=== PATIENT | female | born 1980 | race Caucasian/White ===

== ENCOUNTER 2020-06-07 09:02 | Outpatient (REF) | payer OTHER, SELFPAY ==
[2020-06-07 09:22] LABS: COVID-19 Test Negative (Negative); IDNOW Serial# 55D5AD1C
== END 2020-06-07 09:03 | disposition home or self-care (01) ==
LOC: HO.EMPCOV 09:02
PROVIDERS: PCP Internal Medicine; Visit Provider Internal Medicine
DX: Z20.828 Contact with and (suspected) exposure to other viral communicable diseases (principal)
CPT/HCPCS: 87635; C9803

== ENCOUNTER 2020-07-07 13:41 | Outpatient (REF) | payer OTHER, SELFPAY ==
[2020-07-07 13:58] LABS: COVID-19 Test Negative (Negative); IDNOW Serial# 55D5AD1C
== END 2020-07-07 13:42 | disposition home or self-care (01) ==
LOC: HO.EMPCOV 13:41
PROVIDERS: Visit Provider Internal Medicine
DX: Z20.822 Contact with and (suspected) exposure to COVID-19 (principal)
CPT/HCPCS: 36415; 87635; C9803

== ENCOUNTER 2020-07-14 13:38 | Outpatient (REF) | payer OTHER, SELFPAY ==
[2020-07-14 13:56] LABS: COVID-19 Test Negative (Negative); IDNOW Serial# 55D5AD1C
== END 2020-07-14 13:39 | disposition home or self-care (01) ==
LOC: HO.EMPCOV 13:38
PROVIDERS: Visit Provider Internal Medicine
DX: Z20.822 Contact with and (suspected) exposure to COVID-19 (principal)
CPT/HCPCS: 36415; 87635; C9803

== ENCOUNTER → 2020-08-11 08:56 | Outpatient (BNV) | payer OTHER, SELFPAY | PROVIDERS: PCP Internal Medicine; Visit Provider Internal Medicine | DX: D50.0 Iron deficiency anemia secondary to blood loss (chronic) (principal); N92.0 Excessive and frequent menstruation with regular cycle | CPT/HCPCS: 99213; 99214 ==

== ENCOUNTER 2020-08-30 12:21 | Outpatient (REF) | payer OTHER, SELFPAY ==
[2020-08-30 12:40] LABS: COVID-19 Test Negative (Negative); IDNOW Serial# 55D5AD1C
== END 2020-08-30 12:22 | disposition home or self-care (01) ==
LOC: HO.EMPCOV 12:21
PROVIDERS: Visit Provider Internal Medicine
DX: Z20.822 Contact with and (suspected) exposure to COVID-19 (principal)
CPT/HCPCS: 36415; 87635; C9803

== ENCOUNTER 2020-10-25 11:20 | Outpatient (REF) | payer OTHER, SELFPAY ==
--- NOTE | ~2020-10-25 | MM_ITS ---
EXAMINATION: MM SCREENING DIGITAL BREAST TOMOSYNTHESIS, BILATERAL CLINICAL INFORMATION: Screening. Asymptomatic. Age 40. No prior breast imaging. No known family history breast cancer. The lifetime risk of breast cancer based on the Tyrer-Cuzick Model is 16%. COMPARISON: None (current study represents initial baseline exam). TECHNIQUE: Digital breast tomosynthesis is performed in both the craniocaudal and mediolateral oblique views along with computer-aided detection (CAD). Synthesized 2D images are generated from the tomosynthesis. FINDINGS: There are scattered areas of fibroglandular density (ACR BI-RADS breast composition Category b). There are no significant masses, abnormal calcifications, or other abnormalities. The axilla and skin contours are unremarkable. MM/MM tomosynthesis screening BI IMPRESSION: No mammographic evidence of malignancy. ASSESSMENT: BI-RADS 1: Negative RECOMMENDATION: Routine annual mammography screening. This patient's information was entered into a reminder system with a target due date for their next mammogram.
== END 2020-10-25 11:21 | disposition home or self-care (01) ==
LOC: HO.MAMMO 11:20
PROVIDERS: PCP Internal Medicine; Visit Provider Internal Medicine
DX: Z12.31 Encounter for screening mammogram for malignant neoplasm of breast (principal)
CPT/HCPCS: 77063; 77067

== ENCOUNTER → 2021-02-20 09:13 | Outpatient (BNVA) | payer SELFPAY | PROVIDERS: PCP Internal Medicine | DX: Z20.822 Contact with and (suspected) exposure to COVID-19 (principal) | CPT/HCPCS: 36415; 87635 ==

== ENCOUNTER 2021-03-02 09:59 | Outpatient (REF) | payer OTHER, SELFPAY ==
[2021-03-02 11:48] LABS: Appearance Urine HAZY; Color Urine YELLOW; Glucose Urine UA NEG (NEG); Leukocyte Esterase Urine 1+ (NEG); Nitrite Urine NEG (NEG); PH 5.5 (5.0-8.0); UACC Culture Trigger YES; Urine Blood 1+ (NEG); Urine Ketones NEG (NEG); Urine Protein NEG (NEG-TRACE)
[2021-03-02 12:12] LABS: Bacteria Urine 4+ /LPF; Squamous Epithelial Cell Urine 1+ /LPF; WBC Urine 30-49 /HPF (0-4)
== END 2021-03-02 10:00 | disposition home or self-care (01) ==
LOC: HO.LAB 09:59
PROVIDERS: PCP Internal Medicine; Visit Provider Internal Medicine
DX: R30.0 Dysuria (principal)
CPT/HCPCS: 81001; 87086; 87088; 87186

== ENCOUNTER 2021-09-14 13:10 | Emergency (ER) | payer OTHER, SELFPAY ==
--- NOTE | ~2021-09-14 | XR_ITS ---
EXAMINATION: XR CHEST CLINICAL INFORMATION: Palpitations COMPARISON: None TECHNIQUE: Frontal view of the chest was obtained. FINDINGS: No significant abnormality is noted involving the heart, lungs, mediastinum, bony thorax or soft tissues. XR/XR chest 1V IMPRESSION: Unremarkable examination.
--- NOTE | 2021-09-14 13:13 | ECG_ITS ---
Test Reason : PALPITATIONS Blood Pressure : / mmHG Vent. Rate : 080 BPM Atrial Rate : 080 BPM P-R Int : 122 ms QRS Dur : 090 ms QT Int : 422 ms P-R-T Axes : 031 028 005 degrees QTc Int : 486 ms Normal sinus rhythm Normal ECG No previous ECGs available Referred By: Generic ED Physician Electronically Signed By:RAMONITA LOPES
[2021-09-14 13:41] VITALS: BP 137/84; PULSE 74; RESP 18; TEMP 37.1; O2SAT 97; BMI 33.6
== END 2021-09-14 18:26 | disposition left against medical advice (07) ==
PROVIDERS: Emergency Provider Emergency Medicine; PCP Internal Medicine
DX: R00.2 Palpitations (principal); Z87.891 Personal history of nicotine dependence; F41.9 Anxiety disorder, unspecified; F32.A Depression, unspecified; D64.9 Anemia, unspecified
CPT/HCPCS: 71045; 93005; 99282; 99283

== ENCOUNTER 2021-09-14 16:25 | Outpatient (REF) | payer OTHER, SELFPAY ==
[2021-09-14 16:59] LABS: Hematocrit 40.7 % (37.0-47.0); Hemoglobin 12.8 g/dl (12.0-16.0); Mean Corpuscular HGB Conc 31.4 g/dl (31.0-35.0); Mean Corpuscular Hemoglobin 26.3 pg (27.0-33.0); Mean Corpuscular Volume 83.7 fL (80.0-98.0); Platelet Count 398 X10*3/uL (160-400); Red Blood Count 4.86 X10*6/uL (4.20-5.50)
[2021-09-14 17:16] LABS: Iron 126 mcg/dL (30-160); Percent Iron Saturation 28 % (15-50); Total Iron Binding Capacity 452 mcg/dL (228-428); Unsaturated Iron Binding 326 ug/dL
== END 2021-09-14 16:26 | disposition home or self-care (01) ==
LOC: HO.LAB 16:25
PROVIDERS: PCP Internal Medicine; Visit Provider Internal Medicine
DX: D64.9 Anemia, unspecified (principal)
CPT/HCPCS: 36415; 83540; 85027

== ENCOUNTER 2021-10-30 12:12 | Outpatient (REF) | payer OTHER, SELFPAY ==
--- NOTE | ~2021-10-30 | MM_ITS ---
EXAMINATION: MM SCREENING DIGITAL BREAST TOMOSYNTHESIS, BILATERAL CLINICAL INFORMATION: Screening. Asymptomatic. The lifetime risk of breast cancer based on the Tyrer-Cuzick Model is 17%. COMPARISON: Mammography: 10/25/2020 (baseline). TECHNIQUE: Digital breast tomosynthesis is performed in both the craniocaudal and mediolateral oblique views along with computer-aided detection (CAD). Synthesized 2D images are generated from the tomosynthesis. FINDINGS: There are scattered areas of fibroglandular density (ACR BI-RADS breast composition Category b). There are no significant masses, abnormal calcifications, or other abnormalities. Parenchymal pattern is similar to baseline exam. The axilla and skin contours are unremarkable. MM/MM tomosynthesis screening BI IMPRESSION: No mammographic evidence of malignancy. ASSESSMENT: BI-RADS 1: Negative RECOMMENDATION: Routine annual mammography screening. This patient's information was entered into a reminder system with a target due date for their next mammogram.
== END 2021-10-30 12:13 | disposition home or self-care (01) ==
LOC: HO.MAMMO 12:12
PROVIDERS: Visit Provider Internal Medicine
DX: Z12.31 Encounter for screening mammogram for malignant neoplasm of breast (principal)
CPT/HCPCS: 77063; 77067

== ENCOUNTER 2022-11-26 09:10 | Outpatient (REF) | payer OTHER, SELFPAY ==
--- NOTE | ~2022-11-26 | MM_ITS ---
EXAMINATION: MM SCREENING DIGITAL BREAST TOMOSYNTHESIS, BILATERAL CLINICAL INFORMATION: Screening. Asymptomatic. The lifetime risk of breast cancer based on the Tyrer-Cuzick Model is 15%. COMPARISON: Mammography: 10/30/2021, 10/25/2020 (baseline). TECHNIQUE: Digital breast tomosynthesis is performed in both the craniocaudal and mediolateral oblique views along with computer-aided detection (CAD). Synthesized 2D images are generated from the tomosynthesis. FINDINGS: There are scattered areas of fibroglandular density (ACR BI-RADS breast composition Category b). There are no significant masses, abnormal calcifications, or other abnormalities. Parenchymal pattern is similar to prior studies. There is no developing density or architectural abnormality. The axilla and skin contours are unremarkable. No significant changes. MM/MM tomosynthesis screening BI IMPRESSION: No mammographic evidence of malignancy. ASSESSMENT: BI-RADS 1: Negative RECOMMENDATION: Routine annual mammography screening. This patient's information was entered into a reminder system with a target due date for their next mammogram.
== END 2022-11-26 09:11 | disposition home or self-care (01) ==
LOC: HO.MAMMO 09:10
PROVIDERS: PCP Internal Medicine; Visit Provider Internal Medicine
DX: Z12.31 Encounter for screening mammogram for malignant neoplasm of breast (principal)
CPT/HCPCS: 77063; 77067

== ENCOUNTER 2023-02-27 16:56 | Emergency (ER) | payer OTHER, SELFPAY ==
[2023-02-27 17:18] VITALS: BP 184/100; PULSE 98; RESP 20; TEMP 36.8; O2SAT 97; BMI 35.4
--- NOTE | 2023-02-27 17:18 | ED.GENADULT ---
HPI - General Adult General Chief complaint: Recheck/Abnormal Lab/Rx Stated complaint: High Blood Pressure Time Seen by Provider: 02/27/23 20:32 Source: patient Mode of arrival: ambulatory History of Present Illness HPI narrative: 42-year-old female with a family history hypertension presents with concerns regarding consistently high blood pressures without associated dizziness/headaches/visual changes, she denies any chest pain or palpitations other than in the evening when she is relaxing with her child but they do not persistent are not associated with shortness of breath. Patient reports that she has an appointment at the end of the month with her primary care provider. Related Data Home Medications Medication Instructions Recorded Confirmed bupropion HCl 150 mg tablet,12 hr 150 mg PO DAILY 05/22/20 02/25/23 sustained-release (Wellbutrin SR) fluocinolone 0.01 % topical 1 appl topical DAILY 05/22/20 02/25/23 solution fluoxetine 40 mg capsule (Prozac) 40 mg PO DAILY 05/22/20 02/25/23 betamethasone, augmented 0.05 % 1 appl topical DAILY PRN Dry Skin 09/14/21 02/25/23 topical ointment norethindrone acetate 5 mg tablet 5 mg PO DAILY 02/19/22 02/25/23 (Aygestin) Previous Rx's Medication Instructions Recorded hydrochlorothiazide 12.5 mg capsule 12.5 mg PO DAILY #14 caps 02/27/23 Allergies Allergy/AdvReac Type Severity Reaction Status Date / Time celecoxib [From CELEBREX] Allergy Severe MUSCLE Verified 02/27/23 17:29 SWELLING clavulanic acid Allergy Severe HIVES Verified 02/27/23 17:29 [From AUGMENTIN] penicillin V Allergy Severe rash Verified 02/27/23 17:29 Sulfa (Sulfonamide Allergy Mild SWELLING Verified 02/27/23 17:29 Antibiotics) codeine [Codeine] AdvReac Mild NAUSEA & Verified 02/27/23 17:29 VOMITING Review of Systems Review of Systems: Pertinent positives and negatives as stated in HPI [facility] Past Medical History Source: nursing notes reviewed Medical History Anxiety and depression Shoulder pain Referral of patient Gallbladder polyp Fatty liver Anemia History of renal calculi Toe fracture, left Depression Surgical History H/O dilation and curettage History of hysteroscopy History of bunionectomy History of section Family History Family History Father Colon cancer Maternal Grandmother Breast cancer Paternal Grandfather CAD (coronary artery disease) Social History Social History Household Members: Significant Other and Children Housing: House Alcohol intake: current Alcohol intake frequency: holidays/special occasions only Patient Tobacco Use Status: Never used Tobacco Tobacco use type: Cigarette Smoked in Last 30 Days: No Use of substances other than those prescribed or required for medical reasons: No Advance Directives: No Advance Directives Information Provided: No Patient : No service: No Current occupational status: employed Physical Exam ED Vital Signs: Vital Signs - 24 hr 02/27/23 17:18 02/27/23 20:34 02/27/23 20:51 Temperature 98.3 F Pulse Rate 98 86 Respiratory Rate 20 18 Blood Pressure 184/100 H 185/106 H 166/109 H Pulse Oximetry 97 Oxygen Delivery Method Room Air Oxygen Flow Rate 96 BMI result Body Mass Index 35.4 VITAL SIGNS: Reviewed. GENERAL: Elevated BMI, Well developed, well nourished, in no acute distress. HEAD: Normocephalic/atraumatic EYES: PERRLA, EOMI EARS: Ext canals without abnormality NOSE: Nares patent bilateral OROPHARYNX: no oral lesions noted, posterior pharynx clear NECK: Supple, no adenopathy LUNGS: Normal breath sounds. No adventitious sounds or accessory muscle use. SpO2<97> CARDIOVASCULAR: Regular rate and rhythm without noted murmurs ABDOMEN: Soft, non-tender, non-distended with bowel sounds. MUSCULOSKELETAL: No tenderness, deformities, or effusions noted on gross inspection. EXTREMITIES: No cyanosis, clubbing or edema. SKIN: Inspection of the skin reveals no rashes NEUROLOGIC: Alert and oriented x 4. Strength and sensation to light touch were grossly intact x 4. Course Course Course Narrative: This is an RME: Additional HPI, ROS, PE not included below will be deferred to primary provider. This is a [id number]-female presenting to the emergency department with complaints of elevated blood pressure. She states that two days ago she was at a medical office and was told that her blood pressure was elevated (165/110). She admits to having intermittent heart palpitations for the last several months and has had episodes where she has to take deep breaths. She had an episode of this today. She has been monitoring her blood pressure at home since this appointment and blood pressure has been in the 170s/110s. Blood pressure elevated at 184/100. Has an appt with Dr. Chan at the end of February, but given father had a hx of two heart attacks and stroke, pt wanted to be seen. BP at home this AM was 177/104. Plan: Labs, EKG Medical Decision Making Medical Decision Making [facility] [place] Narrative: 42-year-old female with history and clinical presentation consistent with asymptomatic hypertension, patient has not 1st attempted any lifestyle changes at this time, but diastolic is significantly elevated. I reviewed all investigations and hematologic studies are negative for leukocytosis or left shift, no anemia but there is a slight elevation in the platelet count that appears to have persisted since August of this year. Chemistry indices are grossly within normal limits other than an elevation of glucose but no MASTER and electrolytes/liver enzymes are without abnormalities. TSH is 1.13. Urinalysis is negative for protein/UTI/hematuria. EKG does not demonstrate ischemic changes. All results and findings discussed with patient at bedside, she received 12.5 mg of hydrochlorothiazide and will be discharged with a 2 week supply that should bridge her until she follows up with her primary care provider. My interpretation is that patient has asymptomatic essential hypertension. Differential Diagnosis Differential Diagnoses: The differential diagnosis associated with the presentation includes Please see the discussion above Admission/Observation Consideration of admission/observation: Escalation of care including admission/observation considered Please see the discussion above Lab Data [facility] [place] Lab Attestation statement: I reviewed the patient's lab results. Please see the discussion above 02/27/23 17:40 02/27/23 17:40 Labs: Lab Results 02/27/23 Range/Units 17:40 WBC 9.5 (4.8-10.8) X10*3/uL RBC 5.21 (4.20-5.50) X10*6/uL Hgb 14.7 (12.0-16.0) g/dl Hct 44.1 (37.0-47.0) % MCV 84.6 (80.0-98.0) fL MCH 28.2 (27.0-33.0) pg MCHC 33.3 (31.0-35.0) g/dl RDW 14.8 (11.0-16.0) % Plt Count 412 H (160-400) X10*3/uL MPV 10.3 (9.4-12.3) fL Immature Gran % (Auto) 1.4 H (0.0-0.4) % Neut % (Auto) 60.7 (45-73) % Lymph % (Auto) 27.3 (20-40) % [place] % (Auto) 6.7 (2-11) % Eos % (Auto) 3.3 (0-4) % Baso % (Auto) 0.6 (0-2) % Lymph # (Auto) 2.6 (1.2-4.9) X10*3/uL [place] # (Auto) 0.6 (0.1-1.2) X10*3/uL Eos # (Auto) 0.3 (0.0-0.4) X10*3/uL Baso # (Auto) 0.1 (0.0-0.2) X10*3/uL Abs Immat Gran (auto) 0.13 H (0.00-0.03) X10*3/uL Absolute Neuts (auto) 5.8 (2.0-8.3) x10*3/uL Absolute Nucleated RBC 0.000 (0.0-0.012) X10*3/uL Nucleated RBC % (auto) 0.0 (0.0-0.2) /100WBC Sodium 138 (135-145) mmol/L Potassium 4.1 (3.3-5.1) mmol/L Chloride 104 (96-108) mmol/L Carbon Dioxide 25 (22-29) mmol/L Anion Gap 13 (12-20) BUN 11 (9-16) mg/dL Creatinine 0.89 (0.5-1.4) mg/dL Estim Creat Clear Calc 87.1 Estimated GFR > 60 Random Glucose 129 H (60-115) mg/dL Calcium 10.3 H D (8.4-10.2) mg/dL Total Bilirubin 0.3 (0.0-1.0) mg/dL Direct Bilirubin 0.1 (0.0-0.5) mg/dL AST 16 (5-31) U/L ALT 16 (0-31) U/L Alkaline Phosphatase 60 (39-117) U/L Total Protein 7.9 (6.5-8.0) g/dL Albumin 4.3 (3.5-5.0) g/dL TSH 1.13 (0.32-4.0) uIU/mL Urine Color Dark Yellow Urine Appearance Clear Urine pH 5.5 (5.0-9.0) Ur Specific [place] >= 1.030 H (1.005-1.025) Urine Protein Trace (Neg-Trace) mg/dL Urine Glucose (UA) Negative (Negative) mg/dL Urine Ketones Negative (Negative) mg/dL Urine Blood Negative (Negative) Urine Nitrite Negative (Negative) Ur Leukocyte Esterase Negative (Negative) Independent Interpretation I performed an independent interpretation of an: EKG Interpretation: Normal sinus rhythm, HR-89, no STEMI, SC/QRS/QTC is within normal limits. External Record Review External record reviewed: Outpatient record and Prior outpatient radiology Chronic Conditions Patient?s care impacted by: Hypertension Discharge Plan Discharge Clinical Impression: Essential hypertension, Elevated glucose level Patient Disposition: Home, Self-Care Instructions: DASH Eating Plan (ED), Hypertension (ED) Additional Instructions: 1. Please start the blood pressure medication as prescribed. 2. Please follow-up with your primary care doctor as scheduled at the end of the month. 3. Please review the information regarding dietary changes that may help with blood pressure control. Return to the ER for any worsening symptoms. Prescriptions: New hydrochlorothiazide 12.5 mg capsule 12.5 mg PO DAILY Qty: 14 0RF No Action norethindrone acetate [Aygestin] 5 mg Tablet 5 mg PO DAILY fluocinolone 0.01 % solution 1 appl topical DAILY fluoxetine [Prozac] 40 mg capsule 40 mg PO DAILY bupropion HCl [Wellbutrin SR] 150 mg tablet sustained-release 12 hr 150 mg PO DAILY betamethasone, augmented 0.05 % ointment 1 appl topical DAILY PRN (Reason: Dry Skin) Referrals: Dustin,Adrián Espitia MD [Primary Care Provider] -
--- NOTE | 2023-02-27 17:27 | ECG_ITS ---
Test Reason : palpatations Blood Pressure : / mmHG Vent. Rate : 089 BPM Atrial Rate : 089 BPM P-R Int : 124 ms QRS Dur : 088 ms QT Int : 364 ms P-R-T Axes : 029 031 012 degrees QTc Int : 442 ms Normal sinus rhythm Normal ECG When compared with ECG of 14-SEP-2021 13:10, No significant change was found Referred By: Kelly Tsang Electronically Signed By:RICKI AQUINO
[2023-02-27 17:48] LABS: MANUAL DIFF FLAG NO
[2023-02-27 17:51] LABS: Basophils Absolute Auto 0.1 X10*3/uL (0.0-0.2); Basophils Percent Auto 0.6 % (0-2); Eosinophils Absolute Auto 0.3 X10*3/uL (0.0-0.4); Eosinophils Percent Auto 3.3 % (0-4); Hematocrit 44.1 % (37.0-47.0); Hemoglobin 14.7 g/dl (12.0-16.0); Imm Gran Abs Auto 0.13 X10*3/uL (0.00-0.03); Imm Gran Pct Auto 1.4 % (0.0-0.4); Lymphocytes Absolute Auto 2.6 X10*3/uL (1.2-4.9); Lymphocytes Percent Auto 27.3 % (20-40); Mean Corpuscular HGB Conc 33.3 g/dl (31.0-35.0); Mean Corpuscular Hemoglobin 28.2 pg (27.0-33.0); Mean Corpuscular Volume 84.6 fL (80.0-98.0); Mean Platelet Volume 10.3 fL (9.4-12.3); Monocytes Absolute Auto 0.6 X10*3/uL (0.1-1.2); Monocytes Percent Auto 6.7 % (2-11); Neutrophils Absolute Auto 5.8 x10*3/uL (2.0-8.3); Neutrophils Percent Auto 60.7 % (45-73); Platelet Count 412 X10*3/uL (160-400); Red Blood Count 5.21 X10*6/uL (4.20-5.50); Red Cell Distribution Width 14.8 % (11.0-16.0); White Blood Count 9.5 X10*3/uL (4.8-10.8)
[2023-02-27 17:56] LABS: Appearance Urine Clear; Color Urine Dark Yellow; Glucose Urine UA Negative (Negative); Leukocyte Esterase Urine Negative (Negative); Nitrite Urine Negative (Negative); PH 5.5 (5.0-9.0); Specific Gravity - Urine >= 1.030 (1.005-1.025); Urine Blood Negative (Negative); Urine Ketones Negative (Negative); Urine Protein Trace mg/dL (Neg-Trace)
[2023-02-27 18:05] LABS: Alanine Aminotransferase 16 U/L (0-31); Albumin Level 4.3 g/dL (3.5-5.0); Alkaline Phosphatase 60 U/L (39-117); Anion Gap 13 (12-20); Aspartate Amino Transferase 16 U/L (5-31); Bilirubin Direct 0.1 mg/dL (0.0-0.5); Bilirubin Total 0.3 mg/dL (0.0-1.0); Blood Urea Nitrogen 11 mg/dL (9-16); Calcium 10.3 mg/dL (8.4-10.2); Carbon Dioxide 25 mmol/L (22-29); Chloride 104 mmol/L (96-108); Creatinine Clr Calc Pharmacy 87.1; Estimated Glomerular Filt Rate > 60; Glucose Random 129 mg/dL (60-115); Potassium 4.1 mmol/L (3.3-5.1); Sodium 138 mmol/L (135-145); Total Protein 7.9 g/dL (6.5-8.0)
[2023-02-27 18:25] LABS: TSH reflex Free T4 1.13 uIU/mL (0.32-4.0)
[2023-02-27 20:34] VITALS: BP 185/106; PULSE 86; RESP 18
[2023-02-27 20:51] VITALS: BP 166/109
[2023-02-27] MEDS: hydroCHLOROthiazide 12.5 MG TABLET PO (21:38)
== END 2023-02-27 21:45 | disposition home or self-care (01) ==
PROVIDERS: Physician Assistant Medical; Emergency Provider Student in an Organized Health Care Education/Training Program; PCP Internal Medicine
DX: I10 Essential (primary) hypertension (principal); R73.09 Other abnormal glucose; D64.9 Anemia, unspecified; Z79.899 Other long term (current) drug therapy
CPT/HCPCS: 36415; 80048; 80076; 81003; 84443; 85025; 93005; 99283; 99284

== ENCOUNTER 2023-03-13 09:07 | Outpatient (AMB) | payer OTHER, SELFPAY ==
[2023-03-13 09:09] VITALS: BP 134/100; PULSE 81; O2SAT 99; BMI 34.9
--- NOTE | 2023-03-13 09:09 | MHC.PC.OV ---
Vital Signs 03/13/23 09:09 03/13/23 09:25 Height 5 ft 3 in Weight 197 lb BMI 34.9 BP 134/100 H 134/98 H Blood Pressure Location Lt brachial Lt brachial Position Sitting Sitting Pulse 81 Pulse Source Pulse Oximeter Temp Source Skin Pulse Oximetry (%) 99 Oxygen Delivery Method Room Air Intake Visit Reasons: possible htn Intake Note: pt states HTN [id number] Seismograph Shooter Required: No Allergies celecoxib [From CELEBREX] Allergy (Severe, Verified 03/13/23 09:19) MUSCLE SWELLING clavulanic acid [From AUGMENTIN] Allergy (Severe, Verified 03/13/23 09:19) HIVES penicillin V Allergy (Severe, Verified 03/13/23 09:19) rash Sulfa (Sulfonamide Antibiotics) Allergy (Mild, Verified 03/13/23 09:19) SWELLING codeine [Codeine] Adverse Reaction (Mild, Verified 03/13/23 09:19) NAUSEA & VOMITING Medication List - Last Reconciled 03/13/23 by Josee Elizondo, PEDIATRIC PSYCHIATRIST betamethasone, augmented 0.05 % 1 appl topical DAILY PRN bupropion HCl (Wellbutrin SR) 150 mg PO DAILY fluocinolone 0.01% 1 appl topical DAILY fluoxetine (Prozac) 40 mg PO DAILY hydrochlorothiazide 12.5 mg PO DAILY norethindrone acetate (Aygestin) 5 mg PO DAILY Tobacco use date assessed: 03/13/23 Dental Screening Dental Screen Date: 03/13/23 Did you have a dental visit in the last 12 months?: Yes Did you have a dental problem in the last 6 months where you did not have access to dental care?: No Was dental information given to patient?: Patient has dentist HPI possible htn HPI Details Patient is a 42-year-old female who presents today to follow-up on hypertension. Patient of Dr. Chan. Patient reports that she went to [facility] 2 weeks ago due to high blood pressure she did have normal EKG, she was started on hydrochlorothiazide 12.5 mg daily. When she went to the emergency room her his systolic blood pressure was in 180s. She has been checking her blood pressures at home and systolic blood pressures running between 166 and 140s, the lowest was 117 once. Diastolic blood pressures between 90s and 104. Patient denies shortness of breath or chest pain. She reports compliance with blood pressure medication. Also in the emergency room her sugar noted to be at 129, will order A1c. [facility] Medical History Anxiety and depression Shoulder pain Referral of patient Gallbladder polyp Fatty liver Anemia History of renal calculi Toe fracture, left Depression Surgical History H/O dilation and curettage History of hysteroscopy History of bunionectomy History of section Family History Father Colon cancer Maternal Grandmother Breast cancer Paternal Grandfather CAD (coronary artery disease) Social History Household Members: Significant Other and Children Housing: House Alcohol intake: current Alcohol intake frequency: holidays/special occasions only Patient Tobacco Use Status: Never used Tobacco Tobacco use type: Cigarette service: No Current occupational status: employed Cognitive needs: No Hearing needs: No Vision needs: No Questionnaire PHQ-9 Over the last 2 weeks, how often have you been bothered by any of the following problems? 1. Little interest or pleasure in doing things: not at all 2. Feeling down, depressed, or hopeless: not at all 3. Trouble falling or staying asleep, or sleeping too much: not at all 4. Feeling tired or having little energy: not at all 5. Poor appetite or overeating: not at all 6. Feeling bad about yourself - or that you are a failure or have let yourself or your family down: not at all 7. Trouble concentrating on things, such as reading the newspaper or watching television: not at all 8. Moving or speaking so slowly that other people could have noticed. Or the opposite - being so fidgety or restless that you have been moving around a lot more than usual: not at all 9. Thoughts that you would be better off or of hurting yourself in some way: not at all Total score: 0 Depression Screening Interpretation: Negative 36639 - PHQ-9 Billing: Yes Source: Developed by Drs. Feliciano Jaquez, Aysha Matson, Porfirio Crouch and colleagues, with an educational shelbie from [employer]. AUDIT C Alcohol Use Questionnaire (AUDIT-C) 1. How often do you have a drink containing alcohol?: Monthly or less 2. How many drinks containing alcohol do you have on a typical day when you are drinking?: 1 or 2 3. How often do you have six or more drinks on one occasion?: Never Total Score: 1 Score Reviewed/Action Taken: No MOSHE-7 AMB Questionnaire MOSHE-7 Date MOSHE - 7 assessed: 03/13/23 Feeling nervous, anxious, or on edge: 0 = Not at all Not being able to stop or control worryin = Not at all Worrying too much about different things: 0 = Not at all Trouble relaxin = Not at all Being so restless that it is hard to sit still: 0 = Not at all Becoming easily annoyed or irritable: 0 = Not at all Feeling afraid as if something awful might happen: 0 = Not at all Total MOSHE-7 score (0-4 normal; 5-9 mild; 10-14 moderate; 15-21 severe): 0 Source: Developed by Drs. Feliciano Jaquez, Aysha Matson, Porfirio Crouch and colleagues, with an educational shelbie from [employer]. MOSHE-7 Assessment Billing MOSHE-7 Assessment Tool: MOSHE-7 Assessment 61731 Review of Systems Const Denies body aches, Denies chills, Denies fever(s) and Denies headache(s) ENT Denies dizziness, Denies otalgia, Denies headache(s), Denies nasal discharge, Denies sinus pain and Denies sore throat Card Denies chest pain, Denies edema, Denies lightheadedness and Denies dyspnea Resp Denies cough, Denies dyspnea and Denies wheezing GI Denies abdominal pain Denies dysuria Musc Denies myalgias and Denies tingling Neuro Denies dizziness, Denies headache(s) and Denies tingling Aller/Immun Denies wheezing Physical exam (Primary Care) Vital Signs: Last Vital Signs Pulse 81 03/13/23 09:09 BP 134/100 H 03/13/23 09:09 Pulse Ox 99 03/13/23 09:09 Oxygen Delivery Method Room Air 03/13/23 09:09 BMI result Body Mass Index 34.9 Tobacco/Smoking Status: Tobacco use Status Tobacco use date assessed 03/13/23 03/13/23 09:10 Patient Tobacco Use Status Never used Tobacco 03/13/23 09:10 Tobacco use type Cigarette 03/13/23 09:10 PHQ-9: PHQ-9 Score PHQ-9: Total score 0 03/13/23 09:15 Depression Screening Interpretation: Negative Const General: cooperative and no acute distress Orientation/consciousness: patient oriented x3 HENMT Head: Yes normocephalic and Yes atraumatic Mouth: oropharynx normal and moist mucous membranes Throat: Yes posterior oropharynx normal Eyes General: appearance normal, both eyes and all related structures Pupils: Equal, round and reactive pupils present EOM: EOMs intact bilaterally Neck Neck: Yes normal visual inspection, Yes full ROM and Yes no lymphadenopathy Resp Effort & Inspection: normal respiratory effort and able to speak in complete sentences Auscultation: clear to auscultation bilaterally, no crackles, no rales, no rhonchi and no wheezes Cardio Rate: regular rate Rhythm: regular rhythm Heart sounds: S1 normal heart sound present, S2 normal heart sound present and no murmurs GI Auscultation: normal bowel sounds Skin General skin exam: no rashes or lesions noted Neuro General: patient oriented x3 Cranial nerves: Yes Equal, round and reactive pupils present Gait exam (Neuro): Normal gait present Extrem General: Yes full ROM and No edema Assessment and Plan Assessment & Plan (1) Elevated glucose level: Code(s): R73.09 - Other abnormal glucose Plan: A1c ordered (2) Hypertension: Code(s): I10 - Essential (primary) hypertension Plan: Goal BP equal or less than 140/90 Blood pressure elevated in the office today and at home Will increase hydrochlorothiazide to 25 mg daily Continue to monitor blood pressures at home Low-sodium diet and weight loss Signs and symptoms reviewed when to notify provider go to the emergency department Patient agreed with the plan (3) Obesity (BMI 30-39.9): Code(s): E66.9 - Obesity, unspecified Plan: Healthy food choices and exercise as tolerated Plan Follow-up with PCP in 3 months or sooner as needed Orders: Orders Hemoglobin A1c Today R73.09 - Other abnormal glucose Medications: New hydrochlorothiazide 25 mg PO DAILY 30 tabs 3RF I10 - Essential (primary) hypertension Discontinued hydrochlorothiazide Discontinued Reason: Doctor's Order 12.5 mg PO DAILY 14 caps 0RF Coding Level of Care Code Est Pt Level 3 (77301) Diagnoses Elevated glucose level R73.09 Hypertension I10 Obesity (BMI 30-39.9) E66.9 Additional Codes MOSHE-7 Assessment Billing - MOSHE-7 Assessment Tool: MOSHE-7 Assessment [id number] ([id number])
[2023-03-13 09:25] VITALS: BP 134/98
== END 2023-03-13 09:31 | disposition home or self-care (01) ==
PROVIDERS: PCP Internal Medicine; Visit Provider Nurse Practitioner Family
DX: R73.09 Other abnormal glucose (principal); I10 Essential (primary) hypertension; E66.9 Obesity, unspecified; Z68.34 Body mass index [BMI] 34.0-34.9, adult
CPT/HCPCS: 99213

== ENCOUNTER 2023-03-13 09:38 | Outpatient (REF) | payer OTHER, SELFPAY ==
[2023-03-13 10:12] LABS: Estimated Average Glucose 114 mg/dL; Hemoglobin A1c % 5.6 % (<6.0)
== END 2023-03-13 09:39 | disposition home or self-care (01) ==
LOC: HO.LAB 09:38
PROVIDERS: PCP Internal Medicine; Visit Provider Nurse Practitioner Family
DX: R73.09 Other abnormal glucose (principal)
CPT/HCPCS: 36415; 83036

== ENCOUNTER 2023-06-26 09:22 | Outpatient (AMB) | payer OTHER, SELFPAY ==
[2023-06-26 09:23] VITALS: BP 130/92; PULSE 80; O2SAT 99; BMI 34.5
--- NOTE | 2023-06-26 09:24 | MHC.PC.OV ---
Vital Signs 06/26/23 09:23 Height 5 ft 3 in Weight 195 lb BMI 34.5 BP 130/92 H Blood Pressure Location Lt brachial Position Sitting Pulse 80 Pulse Source Pulse Oximeter Pulse Oximetry (%) 99 Oxygen Delivery Method Room Air Intake Visit Reasons: Hypertension Fence Post Cutter Required: No Allergies celecoxib [From CELEBREX] Allergy (Severe, Verified 06/26/23 09:24) MUSCLE SWELLING clavulanic acid [From AUGMENTIN] Allergy (Severe, Verified 06/26/23 09:24) HIVES penicillin V Allergy (Severe, Verified 06/26/23 09:24) rash Sulfa (Sulfonamide Antibiotics) Allergy (Mild, Verified 06/26/23 09:24) SWELLING codeine [Codeine] Adverse Reaction (Mild, Verified 06/26/23 09:24) NAUSEA & VOMITING Medication List - Last Reconciled 06/26/23 by Adrián Chan MD betamethasone, augmented 0.05 % 1 appl topical DAILY PRN bupropion HCl (Wellbutrin SR) 150 mg PO DAILY fluocinolone 0.01% 1 appl topical DAILY fluoxetine (Prozac) 40 mg PO DAILY lisinopril-hydrochlorothiazide 10-12.5 mg 1 tab PO DAILY norethindrone acetate (Aygestin) 5 mg PO DAILY Tobacco use date assessed: 06/26/23 Dental Screening Dental Screen Date: 06/26/23 Did you have a dental visit in the last 12 months?: Yes Did you have a dental problem in the last 6 months where you did not have access to dental care?: No Was dental information given to patient?: Patient has dentist HPI Hypertension HPI Details 42-year-old obese female with a history of anemia B12 deficiency coming in for follow-up. Last seen in 2020. Patient is up-to-date with colonoscopy and mammogram.. Patient has followed up with the nurse practitioner February 2023 concern about the blood pressure started on hydrochlorothiazide noted sugar to be elevated also A1c done. Patient has followed up with Hematology-Oncology regarding the iron deficiency anemia this is related to the menorrhagia has had D and C an IUD placement 2021 and no longer takes iron supplements, for the HTN had tubal ligation. BP still high DBP 117-144 and DBP 90-101 [facility] Medical History (Updated 06/26/23 @ 09:56 by Adrián Chan MD) Breast cancer screening Anemia Referral of patient Anxiety and depression Shoulder pain Gallbladder polyp Fatty liver Anemia History of renal calculi Toe fracture, left Depression Surgical History H/O dilation and curettage History of hysteroscopy History of bunionectomy History of section Family History Father Colon cancer Maternal Grandmother Breast cancer Paternal Grandfather CAD (coronary artery disease) Social History Household Members: Significant Other and Children Housing: House Alcohol intake: current Alcohol intake frequency: holidays/special occasions only Patient Tobacco Use Status: Never used Tobacco Tobacco use type: Cigarette service: No Current occupational status: employed Cognitive needs: No Hearing needs: No Vision needs: No Questionnaire PHQ-9 Over the last 2 weeks, how often have you been bothered by any of the following problems? 1. Little interest or pleasure in doing things: not at all 2. Feeling down, depressed, or hopeless: not at all 3. Trouble falling or staying asleep, or sleeping too much: not at all 4. Feeling tired or having little energy: not at all 5. Poor appetite or overeating: not at all 6. Feeling bad about yourself - or that you are a failure or have let yourself or your family down: not at all 7. Trouble concentrating on things, such as reading the newspaper or watching television: not at all 8. Moving or speaking so slowly that other people could have noticed. Or the opposite - being so fidgety or restless that you have been moving around a lot more than usual: not at all 9. Thoughts that you would be better off or of hurting yourself in some way: not at all Total score: 0 Depression Screening Interpretation: Negative Depression Screening Done: Yes 74397 - PHQ-9 Billing: Yes Source: Developed by Drs. Feliciano Jaquez, Aysha Matson, Porfirio Crouch and colleagues, with an educational shelbie from [employer]. Thrive Questionnaire Date Thrive assessed: 06/26/23 I am a: Patient What is your living situation today?: I have a steady place to live Within the past 12 months, did the food you bought not last and you didn't have the money to get more?: Never true Within the past 12 months, did you worry whether your food would run out before you got money to buy more?: Never true Do you have trouble paying for medicines?: No Do you have trouble getting transportation to medical appointments?: No Do you have trouble paying your heating and electricity bill?: No Do you have trouble taking care of your child, family member or friend?: No Do you have trouble with day-to-day activities such as bathing, preparing meals, shopping, managing finances, etc.?: No Are you currently unemployed and looking for a job?: No Are you interested in more education?: No AUDIT C Alcohol Use Questionnaire (AUDIT-C) 1. How often do you have a drink containing alcohol?: Monthly or less 2. How many drinks containing alcohol do you have on a typical day when you are drinking?: 1 or 2 3. How often do you have six or more drinks on one occasion?: Never Total Score: 1 Score Reviewed/Action Taken: No MOSHE-7 AMB Questionnaire MOSHE-7 Date MOSHE - 7 assessed: 06/26/23 Source: Developed by Drs. Feliciano Jaquez, Aysha Matson, Porfirio Crouch and colleagues, with an educational sheblie from [employer]. Physical exam (Primary Care) Vital Signs: Last Vital Signs Pulse 80 06/26/23 09:23 BP 130/92 H 06/26/23 09:23 Pulse Ox 99 06/26/23 09:23 Oxygen Delivery Method Room Air 06/26/23 09:23 BMI result Body Mass Index 34.5 Tobacco/Smoking Status: Tobacco use Status Tobacco use date assessed 06/26/23 06/26/23 09:25 Patient Tobacco Use Status Never used Tobacco 06/26/23 09:25 Tobacco use type Cigarette 06/26/23 09:25 PHQ-9: PHQ-9 Score PHQ-9: Total score 0 06/26/23 09:28 Depression Screening Interpretation: Negative Thrive Assessment: Date of Thrive Assessment Date Thrive assessed 06/26/23 06/26/23 09:25 Const General: alert; No acute distress Eyes Conjunctivae: conjunctivae normal Resp Auscultation: clear to auscultation bilaterally Cardio Rate: regular rate Rhythm: regular rhythm GI Inspection: Yes normal to inspection Extrem General: Yes normal to inspection and No edema Assessment and Plan Assessment & Plan (1) Hypertension: Code(s): I10 - Essential (primary) hypertension Plan: Continue with blood pressure medication. Decrease salt intake and exercise presently on hydrochlorothiazide 25 mg once a day (2) Obesity (BMI 30-39.9): Code(s): E66.9 - Obesity, unspecified Plan: Diet and exercise (3) Anxiety and depression: Comment: Dr. Gisel Conde every 6 months Code(s): F41.9 - Anxiety disorder, unspecified; F32.9 - Major depressive disorder, single episode, unspecified Plan: Continue with counseling and therapy (4) Anemia: Comment: Iron and B12 deficiency Code(s): D64.9 - Anemia, unspecified Qualifiers: Anemia type: B12 deficiency Vitamin B12 deficiency anemia type: unspecified B12 deficiency Qualified Code(s): D51.9 - Vitamin B12 deficiency anemia, unspecified Plan: Patient has seen hematology oncology and resolved (5) Impaired glucose tolerance: Code(s): R73.02 - Impaired glucose tolerance (oral) Plan: Decrease the amount of carbohydrate intake, pasta, bread, rice and potatoes are all sugar and that is aside from all the sweet stuff, remember that fruits are good but they are Sweet also. Medications: New lisinopril-hydrochlorothiazide 10-12.5 mg 1 tab PO DAILY 30 tabs 3RF I10 - Essential (primary) hypertension Discontinued hydrochlorothiazide Discontinued Reason: Doctor's Order 25 mg PO DAILY 30 tabs 3RF I10 - Essential (primary) hypertension Coding Level of Care Code Est Pt Level 4 (55224) Diagnoses Hypertension I10 Obesity (BMI 30-39.9) E66.9 Anxiety and depression F41.9; F32.9 Anemia due to vitamin B12 deficiency, unspecified B12 deficiency type D51.9 Anemia type: B12 deficiency Vitamin B12 deficiency anemia type: unspecified B12 deficiency Impaired glucose tolerance R73.02
== END 2023-06-26 10:09 | disposition home or self-care (01) ==
PROVIDERS: PCP Internal Medicine; Visit Provider Internal Medicine
DX: I10 Essential (primary) hypertension (principal); E66.9 Obesity, unspecified; F41.9 Anxiety disorder, unspecified; Z68.34 Body mass index [BMI] 34.0-34.9, adult; F32.9 Major depressive disorder, single episode, unspecified; D51.9 Vitamin B12 deficiency anemia, unspecified; R73.02 Impaired glucose tolerance (oral)
CPT/HCPCS: 99214

== ENCOUNTER 2023-10-14 10:14 | Outpatient (AMB) | payer OTHER, SELFPAY ==
[2023-10-14 10:27] VITALS: BP 122/78; PULSE 88; O2SAT 98; BMI 33.3
--- NOTE | 2023-10-14 10:27 | MHC.PC.OV ---
Vital Signs 10/14/23 10:27 Height 5 ft 3 in Weight 188 lb BMI 33.3 BP 122/78 Blood Pressure Location Lt brachial Position Standing Pulse 88 Pulse Source Pulse Oximeter Pulse Oximetry (%) 98 Oxygen Delivery Method Room Air Intake Visit Reasons: PE - see comments Allergies celecoxib [From CELEBREX] Allergy (Severe, Verified 10/14/23 10:28) MUSCLE SWELLING clavulanic acid [From AUGMENTIN] Allergy (Severe, Verified 10/14/23 10:28) HIVES penicillin V Allergy (Severe, Verified 10/14/23 10:28) rash Sulfa (Sulfonamide Antibiotics) Allergy (Mild, Verified 10/14/23 10:28) SWELLING codeine [Codeine] Adverse Reaction (Mild, Verified 10/14/23 10:28) NAUSEA & VOMITING Medication List - Last Reconciled 10/14/23 by Adrián Chan MD betamethasone, augmented 0.05 % 1 appl topical DAILY PRN bupropion HCl XL (Wellbutrin XL) 300 mg PO QAM fluocinolone 0.01% 1 appl topical DAILY fluoxetine (Prozac) 40 mg PO DAILY lisinopril-hydrochlorothiazide 10-12.5 mg 1 tab PO DAILY norethindrone acetate (Aygestin) 5 mg PO DAILY Tobacco use date assessed: 10/14/23 Dental Screening Dental Screen Date: 10/14/23 Did you have a dental visit in the last 12 months?: Yes Did you have a dental problem in the last 6 months where you did not have access to dental care?: No Was dental information given to patient?: Patient has dentist HPI PE - see comments HPI Details 43-year-old obese female with hypertension generalized anxiety disorder impaired glucose tolerance coming in for physical exam. Last seen in June 2023. Patient's colonoscopy 2019 mammogram is up-to-date November 2022. Noted weight [facility] Medical History (Updated 10/14/23 @ 11:03 by Adrián Chan MD) Breast cancer screening Anemia Referral of patient Anxiety and depression Shoulder pain Gallbladder polyp Fatty liver Anemia History of renal calculi Toe fracture, left Depression Surgical History H/O dilation and curettage History of hysteroscopy History of bunionectomy History of section Family History (Updated 10/14/23 @ 10:52 by Adrián Chan MD) Father Colon cancer Maternal Grandmother Breast cancer Paternal Grandfather CAD (coronary artery disease) Father CAD (coronary artery disease) Social History (Updated 10/14/23 @ 10:53 by Adrián Chan MD) Household Members: Significant Other and Children Housing: House Alcohol intake: current Alcohol intake frequency: holidays/special occasions only Comment: ocne a week glass Patient Tobacco Use Status: Never used Tobacco Tobacco use type: Cigarette e-Cigarette/Vaping Use: Never Used Second Hand Smoke Exposure: No service: No Current occupational status: employed Cognitive needs: No Hearing needs: No Vision needs: Yes Questionnaire PHQ-9 Over the last 2 weeks, how often have you been bothered by any of the following problems? 1. Little interest or pleasure in doing things: not at all 2. Feeling down, depressed, or hopeless: not at all 3. Trouble falling or staying asleep, or sleeping too much: not at all 4. Feeling tired or having little energy: not at all 5. Poor appetite or overeating: not at all 6. Feeling bad about yourself - or that you are a failure or have let yourself or your family down: not at all 7. Trouble concentrating on things, such as reading the newspaper or watching television: not at all 8. Moving or speaking so slowly that other people could have noticed. Or the opposite - being so fidgety or restless that you have been moving around a lot more than usual: not at all 9. Thoughts that you would be better off or of hurting yourself in some way: not at all Total score: 0 Depression Screening Interpretation: Negative Depression Screening Done: Yes 35573 - PHQ-9 Billing: Yes Source: Developed by Drs. Feliciano Jaquez, Aysha Matson, Porfirio Crouch and colleagues, with an educational shelbie from [employer]. Thrive Questionnaire Date Thrive assessed: 10/14/23 I am a: Patient What is your living situation today?: I have a steady place to live Within the past 12 months, did the food you bought not last and you didn't have the money to get more?: Never true Within the past 12 months, did you worry whether your food would run out before you got money to buy more?: Never true Do you have trouble paying for medicines?: No Do you have trouble getting transportation to medical appointments?: No Do you have trouble paying your heating and electricity bill?: No Do you have trouble taking care of your child, family member or friend?: No Do you have trouble with day-to-day activities such as bathing, preparing meals, shopping, managing finances, etc.?: No Are you currently unemployed and looking for a job?: No Are you interested in more education?: No Currently or been in a relationship where the following occur: no concerns reported THRIVE Score: 0 AUDIT C Alcohol Use Questionnaire (AUDIT-C) 1. How often do you have a drink containing alcohol?: Monthly or less 2. How many drinks containing alcohol do you have on a typical day when you are drinking?: 1 or 2 3. How often do you have six or more drinks on one occasion?: Never Total Score: 1 Score Reviewed/Action Taken: No MOSHE-7 AMB Questionnaire MOSHE-7 Date MOSHE - 7 assessed: 10/14/23 Feeling nervous, anxious, or on edge: 0 = Not at all Not being able to stop or control worryin = Not at all Worrying too much about different things: 0 = Not at all Trouble relaxin = Not at all Being so restless that it is hard to sit still: 0 = Not at all Becoming easily annoyed or irritable: 0 = Not at all Feeling afraid as if something awful might happen: 0 = Not at all Total MOSHE-7 score (0-4 normal; 5-9 mild; 10-14 moderate; 15-21 severe): 0 Source: Developed by Drs. Feliciano Jaquez, Aysha Matson, Porfirio Crouch and colleagues, with an educational shelbie from [employer]. Review of Systems Const Denies poor appetite and Denies weakness Eyes Denies no additional complaints ENT Reports Normal hearing present, Denies dizziness, Denies nasal congestion, Denies tinnitus and Denies sore throat Card Denies chest pain, Denies syncope, Denies rapid heart rate and Denies dyspnea Resp Denies cough and Denies dyspnea GI Denies change in stool character, Reports constipation, Denies diarrhea, Denies nausea and Denies vomiting Denies urinary frequency, Denies difficulty voiding and Denies dysuria Neuro Reports Normal hearing present, Denies confusion, Denies dizziness, Denies syncope and Denies weakness Psych Denies confusion Physical exam (Primary Care) Vital Signs: Last Vital Signs Pulse 88 10/14/23 10:27 BP 122/78 10/14/23 10:27 Pulse Ox 98 10/14/23 10:27 Oxygen Delivery Method Room Air 10/14/23 10:27 BMI result Body Mass Index 33.3 Tobacco/Smoking Status: Tobacco use Status Tobacco use date assessed 10/14/23 10/14/23 10:33 Patient Tobacco Use Status Never used Tobacco 10/14/23 10:53 Tobacco use type Cigarette 10/14/23 10:53 e-Cigarette/Vaping Use Never Used 10/14/23 10:53 PHQ-9: PHQ-9 Score PHQ-9: Total score 0 10/14/23 11:13 Depression Screening Interpretation: Negative Thrive Assessment: Date of Thrive Assessment Date Thrive assessed 10/14/23 10/14/23 10:33 Currently or been in a relationship where the following occur: no concerns reported Const General: No confusion Orientation/consciousness: No confusion HENMT Head: Yes normocephalic Ears: external ears normal and TM's normal bilaterally Face and sinus: Yes normal facial exam Mouth: moist mucous membranes Throat: Yes tonsils normal Eyes Conjunctivae: conjunctivae normal Pupils: Equal, round and reactive pupils present and Pupil accommodation reflex normal Direct Ophthalmoscopy: normal light reflex Neck Neck: No lymphadenopathy Thyroid: Thyroid normal Chest Chest palpation & inspection: normal inspection of the chest Resp Effort & Inspection: normal respiratory effort and no audible wheezes Auscultation: clear to auscultation bilaterally, no crackles, no wheezes and lung sounds not diminished Cardio Rate: regular rate Rhythm: regular rhythm Peripheral pulses: radial pulses present and dorsalis pedis present GI Palpation (GI): no masses Auscultation: normal bowel sounds and normoactive bowel sounds Rectal Exam - Female: deferred Skin General skin exam: no rashes or lesions noted Rashes: no rashes Neuro General: No confusion Cranial nerves: Yes Equal, round and reactive pupils present and Yes Normal hearing present Cognition (Neuro): normal cognition Gait exam (Neuro): Normal gait present Motor exam (neuro): 5/5 motor strength present throughout Deep tendon reflexes (DTR's): Right brachioradialis reflex intensity grade: 2+, Left brachioradialis reflex intensity grade: 2+, Right patellar reflex intensity grade: 2+ and Left patellar reflex intensity grade: 2+ Extrem General: No edema Immunizations Boostrix Tdap 2.5 Lf unit-8 mcg-5 Lf/0.5 mL intramuscular syringe Performing Provider: Adrián Chan MD [facility] Administered by: Sherri Perez CMA on 10/14/23 11:11 Dose Route Admin Location Dispensed Lot Number Expiration Date [employer] 0.5 mL IM Left Deltoid 0.5 mL [id number] 11/13/25 [id number] Sanitors VIS Given Date VIS Provided VIS Publication Date 10/14/23 Single Vaccine 21 Eligibility Eligibility Date Funding Source Not [facility] Eligible 10/14/23 Private Assessment and Plan Assessment & Plan (1) Annual physical exam: Code(s): Z00.00 - Encounter for general adult medical examination without abnormal findings (2) Impaired glucose tolerance: Code(s): R73.02 - Impaired glucose tolerance (oral) Plan: Decrease the amount of carbohydrate intake, pasta, bread, rice and potatoes are all sugar and that is aside from all the sweet stuff, remember that fruits are good but they are Sweet also. (3) Obesity (BMI 30-39.9): Code(s): E66.9 - Obesity, unspecified Plan: Diet and exercise (4) Hypertension: Code(s): I10 - Essential (primary) hypertension Plan: Continue with blood pressure medication. Decrease salt intake and exercise presently on lisinopril hydrochlorothiazide 1012.5 once a day (5) Anxiety and depression: Comment: Dr. Gisel Conde every 6 months Code(s): F41.9 - Anxiety disorder, unspecified; F32.9 - Major depressive disorder, single episode, unspecified Plan: Continue with counseling and therapy. Presently on fluoxetine 40 mg once a day and bupropion 150 mg once a day (6) Hemorrhoids: Code(s): K64.9 - Unspecified hemorrhoids Plan: Discussed on avoiding being constipated. Cream prescribed (7) Family history of colon cancer: Comment: colon test 2018 Code(s): Z80.0 - Family history of malignant neoplasm of digestive organs Plan: Patient was reminded to call gastroenterology for a schedule for repeat colonoscopy as it has been 5 years. Orders: Orders Complete Blood Count Auto Diff 3 Months R73.02 - Impaired glucose tolerance (oral) Comprehensive Met. Panel 3 Months R73.02 - Impaired glucose tolerance (oral) Vitamin B12 and Folate 3 Months R73.02 - Impaired glucose tolerance (oral) TDaP Immunization Today Z23 - Encounter for immunization Hemoglobin A1c 3 Months R73.02 - Impaired glucose tolerance (oral) Free T4 (Free Thyroxine) 3 Months R73.02 - Impaired glucose tolerance (oral) Thyroid Stimulating Hormone 3 Months R73.02 - Impaired glucose tolerance (oral) Lipid Panel 3 Months E78.00 - Pure hypercholesterolemia, unspecified, R73.02 - Impaired glucose tolerance (oral) Vitamin D 25-OH Total 3 Months R73.02 - Impaired glucose tolerance (oral) Medications: New hydrocortisone 2.5% (Proctosol HC) 1 appl SD BID-QID PRN 30 grams 2RF itching K64.9 - Unspecified hemorrhoids Refilled lisinopril-hydrochlorothiazide 10-12.5 mg 1 tab PO DAILY 90 tabs 3RF I10 - Essential (primary) hypertension Coding Level of Care Code Est Pt Prev Care 40-64y(77609) Diagnoses Annual physical exam Z00.00 Impaired glucose tolerance R73.02 Obesity (BMI 30-39.9) E66.9 Hypertension I10 Anxiety and depression F41.9; F32.9 Hemorrhoids K64.9 Family history of colon cancer Z80.0
== END 2023-10-14 11:20 | disposition home or self-care (01) ==
PROVIDERS: PCP Internal Medicine; Visit Provider Internal Medicine
DX: Z23 Encounter for immunization (principal); Z00.00 Encounter for general adult medical examination without abnormal findings; R73.02 Impaired glucose tolerance (oral); I10 Essential (primary) hypertension; F33.9 Major depressive disorder, recurrent, unspecified; F41.9 Anxiety disorder, unspecified; K64.9 Unspecified hemorrhoids; Z80.0 Family history of malignant neoplasm of digestive organs
CPT/HCPCS: 90471; 90715; 99396

== ENCOUNTER 2023-12-02 09:10 | Outpatient (REF) | payer OTHER, SELFPAY | END 2023-12-02 09:11 | disposition home or self-care (01) | LOC: HO.MAMMO 09:10 | PROVIDERS: PCP Internal Medicine; Visit Provider Internal Medicine | DX: Z12.31 Encounter for screening mammogram for malignant neoplasm of breast (principal) | CPT/HCPCS: 77063; 77067 ==

== ENCOUNTER → 2023-12-02 09:15 | Outpatient (BNV) | payer OTHER, SELFPAY | PROVIDERS: PCP Internal Medicine; Visit Provider Radiology Diagnostic Radiology | DX: Z12.31 Encounter for screening mammogram for malignant neoplasm of breast (principal) | CPT/HCPCS: 77063; 77067 ==

== ENCOUNTER 2024-03-09 14:26 | Outpatient (AMB) | payer OTHER, SELFPAY ==
[2024-03-09 14:32] VITALS: BP 118/73; PULSE 81; BMI 32.8
--- NOTE | 2024-03-09 14:32 | A.OFFVIS_ITS ---
Vital Signs 3 03/09/24 14:32 Height 5 ft 3 in Weight 185 lb 3.013 oz BMI 32.8 BP 118/73 Blood Pressure Location Lt brachial Position Sitting Pulse 81 Intake Visit Reasons: Colonoscopy screening Intake Note: Angelica presents as a new patient for colonoscopy screening. CC: Patient denies having any GI symptoms today. Last colonoscopy was about 5 years per patient. [employer] Nurse Required: No Accompanied by: Self / Same As Patient Allergies celecoxib [From CELEBREX] Allergy (Severe, Verified 03/09/24 14:37) MUSCLE SWELLING clavulanic acid [From AUGMENTIN] Allergy (Severe, Verified 03/09/24 14:37) HIVES penicillin V Allergy (Severe, Verified 03/09/24 14:37) rash Sulfa (Sulfonamide Antibiotics) Allergy (Mild, Verified 03/09/24 14:37) SWELLING codeine [Codeine] Adverse Reaction (Mild, Verified 03/09/24 14:37) NAUSEA & VOMITING HPI HPI Colonoscopy screening: Details: 43-year-old female here for preprocedural meeting to discuss a screening colonoscopy. She is referred by Adrián Chan PMX Hypertension Obesity Depression with anxiety Fatty liver History of toe fracture Nephrolithiasis * SURGICAL HISTORY section X2 D&C Bunionectomy * ALLERGIES Celebrex clavulanic acid - BUT OK WITH AMOX Penicillin Sulfa Codeine * [employer] LABS: No labs since 02/2023Findings: 2019 COLONOSCOPY Terminal Ileum ? Distal 10 cms was examined and appeared normal Cecum ? Normal Ascending Colon ? Normal Transverse Colon - Normal Descending Colon ? Moderate diverticulosis Sigmoid Colon ? Severe diverticulosis with luminal narrowing with spasm. Pt was placed in a supine position and several passes with the scope were made through the area of diverticular narrowing and no polyp or significant lesion was detected. Rectum ? Normal Anorectum - Small intenal hemorrhoids Colon preparation: Excellent Impression and Post Procedure Diagnosis: Endoscopy Findings: LARYNX: Normal ESOPHAGUS: Normal STOMACH: Gastritis DUODENUM: Normal Colonoscopy Findings: No polyps were detected. Random biopsies were obtained from the colon. Moderate to severe diverticulosis seen in the left colon Small hemorrhoids on retroflexed exam. No source found for LISA. Plan: Await pathology results. If biopsies are normal, consider further evaluation with stool hemoccults x 3 and a Capsule Study if stool hemocults are positive. Patient has an appointment on 09/29/18 in the GI Clinic with DESTIN Luo. Repeat Colonoscopy interval based on path results - in 5 years if biopsies are normal . Above findings were reviewed with the patient and gastritis and diverticulosis handouts were provided to the patient. Condition Post-Op: Stable Complications: None Grafts or Implants: None Drains None Estimated blood loss: Minimal Specimen: A. Small bowel B. Gastric antrum C. Random colon biopsies Other findings: None Patient returned to: PACU TODAY'S VISIT SHe has a FHX of crc and her last scope was in 2019 and was negative. No bowel or upper GI problems. She requests Miralax prep No cardiac or respiratory problems No ID problems. No anesthesia or sedation problems. [facility] Medical History (Updated 03/09/24 @ 14:45 by KYREE Valentine) Annual physical exam Breast cancer screening Anemia Referral of patient Anxiety and depression Shoulder pain Gallbladder polyp Fatty liver Anemia History of renal calculi Toe fracture, left Depression Surgical History H/O colonoscopy H/O dilation and curettage History of hysteroscopy History of bunionectomy History of section Family History Father Colon cancer Maternal Grandmother Breast cancer Paternal Grandfather CAD (coronary artery disease) Father CAD (coronary artery disease) Social History Household Members: Significant Other and Children Housing: House Alcohol intake: current Alcohol intake frequency: holidays/special occasions only Comment: ocne a week glass Patient Tobacco Use Status: Never used Tobacco Tobacco use type: Cigarette e-Cigarette/Vaping Use: Never Used Second Hand Smoke Exposure: No service: No Current occupational status: employed Cognitive needs: No Hearing needs: No Vision needs: Yes Review of Systems Const Denies fatigue, Denies fever(s), Denies night sweats, Denies poor appetite and Denies weight loss ENT Reports Normal hearing present, Denies dysphagia, Denies odynophagia, Denies throat swelling and Denies tongue swelling Card Reports no additional complaints Resp Reports no additional complaints GI Details: Denies abdominal pain, Denies melena, Denies bloating, Denies hematochezia, Denies constipation, Denies GI cramping, Denies dysphagia, Denies excessive flatus, Denies early satiety, Denies heartburn, Denies diarrhea, Denies nausea, Denies odynophagia, Denies vomiting and Denies hematemesis Skin/Breast Denies pruritus, Denies lesions, Denies rash and Denies jaundice Neuro Reports Normal hearing present and Denies Abnormal speech present Endo Denies fatigue Aller/Immun Denies throat swelling and Denies tongue swelling Physical Exam Vital Signs: Last Vital Signs Pulse 81 03/09/24 14:32 BP 118/73 03/09/24 14:32 BMI result Body Mass Index 32.8 Const General: cooperative, no acute distress, well developed and well groomed Nutritional Appearance: well nourished and obese Orientation/consciousness: oriented to person, oriented to place and oriented to time Limitations: No language barrier HEENT Head: Yes normocephalic and Yes atraumatic Eyes General: appearance normal, both eyes and all related structures Pupils: Equal, round and reactive pupils present Neck Neck: Yes normal visual inspection and Yes no lymphadenopathy Thyroid: Thyroid normal Resp Effort & Inspection: normal respiratory effort and able to speak in complete sentences Auscultation: clear to auscultation bilaterally Cardio Rate: regular rate Rhythm: regular rhythm Heart sounds: Normal, physiologic split S2 sound present Peripheral pulses: radial pulses present and posterior tibial pulses present GI Inspection: No distended, No Abdominal panniculus present, Yes obesity, Yes scar and Yes striae Palpation (GI): Soft to palpation, nontender, no guarding, not rigid and No hepatosplenomegaly present Percussion: Yes normal to percussion Auscultation: normal bowel sounds Rectal Exam - Female: deferred Abdomen image: 2 1. surgical scar Skin General skin exam: no rashes or lesions noted, turgor normal, skin not dry, no jaundice, No spider nevi and no striae Rashes: no rashes Nails: normal Neuro General: oriented to person, oriented to place and oriented to time Cranial nerves: Yes Equal, round and reactive pupils present and Yes Normal hearing present Speech: No Abnormal speech present Extrem General: Yes normal to inspection, No clubbing, No cyanosis and No edema Psych Appearance: grossly normal and well kempt Mental Status: mental status grossly normal Speech and movement: Normal speech and movement present Affect: normal affect Attitude: cooperative Thought process: Normal thought process present and not confabulating Thought content: Normal thought content present Insight: Fair insight present (Psych) Judgement: Fair judgement present (Psych) Assessment & Plan Assessment & Plan (1) Family history of colon cancer: Comment: colon test 2019 Code(s): Z80.0 - Family history of malignant neoplasm of digestive organs Category: Medical Plan SHe has a FHX of crc and her last scope was in 2019 and was negative. No bowel or upper GI problems. She requests Miralax prep No cardiac or respiratory problems No ID problems. No anesthesia or sedation problems. Orders: Orders 2 Colonoscopy - GI Use Only Today Z80.0 - Family history of malignant neoplasm of digestive organs Comprehensive Met. Panel Today Z80.0 - Family history of malignant neoplasm of digestive organs Complete Blood Count Auto Diff Today Z80.0 - Family history of malignant neoplasm of digestive organs Medications: New 2 bisacodyl (Dulcolax (bisacodyl)) 10 mg (2 x 5 mg) PO BEDTIME 4 tabs 0RF 2 days polyethylene glycol 3350 (Miralax) 238 grams PO ONCE 238 grams 0RF colonoscopy prep 1 day Coding Level of Care Code New Pt Level 3 (34779) Diagnoses Family history of colon cancer Z80.0
== END 2024-03-09 14:57 | disposition home or self-care (01) ==
PROVIDERS: PCP Internal Medicine; Visit Provider Nurse Practitioner
DX: Z80.0 Family history of malignant neoplasm of digestive organs (principal)
CPT/HCPCS: 99203

== ENCOUNTER → 2024-03-09 14:26 | Outpatient (BNVA) | payer OTHER, SELFPAY | PROVIDERS: PCP Internal Medicine; Visit Provider Nurse Practitioner ==

== ENCOUNTER 2024-04-14 09:46 | Outpatient (AMB) | payer OTHER, SELFPAY ==
[2024-04-14 09:47] VITALS: BP 112/82; PULSE 82; O2SAT 98; BMI 33.1
--- NOTE | 2024-04-14 09:47 | MHC.PC.OV ---
Vital Signs 04/14/24 09:47 Height 5 ft 3 in Weight 187 lb BMI 33.1 BP 112/82 Blood Pressure Location Lt brachial Position Sitting Pulse 82 Pulse Source Pulse Oximeter Pulse Oximetry (%) 98 Oxygen Delivery Method Room Air Intake Visit Reasons: Hypertension Intake Note: Patient here for a follow up HTN Multi Skilled Operator Required: No Accompanied by: Self / Same As Patient Allergies celecoxib [From CELEBREX] Allergy (Severe, Verified 04/14/24 09:48) MUSCLE SWELLING clavulanic acid [From AUGMENTIN] Allergy (Severe, Verified 04/14/24 09:48) HIVES penicillin V Allergy (Severe, Verified 04/14/24 09:48) rash Sulfa (Sulfonamide Antibiotics) Allergy (Mild, Verified 04/14/24 09:48) SWELLING codeine [Codeine] Adverse Reaction (Mild, Verified 04/14/24 09:48) NAUSEA & VOMITING Tobacco use date assessed: 10/14/23 Dental Screening Dental Screen Date: 10/14/23 HPI Hypertension HPI Details 43-year-old obese female with impaired glucose tolerance hypertension generalized anxiety disorder coming in for follow-up. Last seen in September 2023. Patient's colonoscopy last done in 2018 and was reminded about repeat colonoscopy. Mammogram is up-to-date. Patient has met with Gastroenterology and scheduled for June 2024 patient is supposed to have blood work for me. [facility] Medical History (Updated 04/14/24 @ 10:01 by Adrián Cahn MD) Anxiety and depression Annual physical exam Breast cancer screening Anemia Referral of patient Shoulder pain Gallbladder polyp Fatty liver Anemia History of renal calculi Toe fracture, left Depression Surgical History H/O colonoscopy H/O dilation and curettage History of hysteroscopy History of bunionectomy History of section Family History Father Colon cancer Maternal Grandmother Breast cancer Paternal Grandfather CAD (coronary artery disease) Father CAD (coronary artery disease) Social History Household Members: Significant Other and Children Housing: House Alcohol intake: current Alcohol intake frequency: holidays/special occasions only Comment: ocne a week glass Patient Tobacco Use Status: Never used Tobacco Tobacco use type: Cigarette e-Cigarette/Vaping Use: Never Used Second Hand Smoke Exposure: No service: No Current occupational status: employed Cognitive needs: No Hearing needs: No Vision needs: Yes Questionnaire Thrive Questionnaire Date Thrive assessed: 10/14/23 MOSHE-7 AMB Questionnaire MOSHE-7 Date MOSHE - 7 assessed: 10/14/23 Source: Developed by Drs. Feliciano Jaquez, Aysha Matson, Porfirio Crouch and colleagues, with an educational shelbie from [employer]. Physical exam (Primary Care) Vital Signs: Last Vital Signs Pulse 82 04/14/24 09:47 BP 112/82 04/14/24 09:47 Pulse Ox 98 04/14/24 09:47 Oxygen Delivery Method Room Air 04/14/24 09:47 BMI result Body Mass Index 33.1 Tobacco/Smoking Status: Tobacco use Status Tobacco use date assessed 10/14/23 04/14/24 09:53 Patient Tobacco Use Status Never used Tobacco 04/14/24 09:53 Tobacco use type Cigarette 04/14/24 09:53 e-Cigarette/Vaping Use Never Used 04/14/24 09:53 Thrive Assessment: Date of Thrive Assessment Date Thrive assessed 10/14/23 04/14/24 09:53 Const General: alert; No acute distress Eyes Conjunctivae: conjunctivae normal Resp Auscultation: clear to auscultation bilaterally Cardio Rate: regular rate Rhythm: regular rhythm GI Inspection: Yes normal to inspection Extrem Hand/finger images: 1. Cystic 5 mm mass/lesion seen on the right 4th finger with nail dystrophy Office Procedures Flu Questionnaire Does the patient have a severe egg allergy?: No Does the patient have severe life threatening allergies?: No Does the patient have a fever or illness today?: No Has the patient ever had Guillain-[place] Syndrome?: No Has the patient ever had any past reaction to a flu shot?: No Immunizations Fluarix Triv [id number] (PF) 45 mcg (15 mcg x 3)/0.5 mL IM syringe Performing Provider: Adrián Chan MD [facility] Administered by: SOO Loomis on 04/14/24 09:55 Dose Route Admin Location Dispensed Lot Number Expiration Date [facility] Drier Tender Naphthalene 0.5 mL IM Left Deltoid 0.5 mL [id number] 12/13/24 [id number] [place] VIS Given Date VIS Provided VIS Publication Date 04/14/24 Single Vaccine 21 Eligibility Eligibility Date Funding Source Not [facility] Eligible 04/14/24 Private Coding Level of Care Code Est Pt Level 4 (69375) Diagnoses Family history of colon cancer Z80.0 Impaired glucose tolerance R73.02 Obesity (BMI 30-39.9) E66.9 Primary hypertension I10 Hypertension type: primary hypertension Generalized anxiety disorder F41.1 Yeast infection B37.9 Nodule of finger of right hand R22.31 Assessment & Plan Assessment & Plan (1) Family history of colon cancer: Comment: colon test 2018 Code(s): Z80.0 - Family history of malignant neoplasm of digestive organs Category: Medical Plan: Patient has a scheduled colonoscopy in June 2024 (2) Impaired glucose tolerance: Code(s): R73.02 - Impaired glucose tolerance (oral) Category: Medical Plan: Decrease the amount of carbohydrate intake, pasta, bread, rice and potatoes are all sugar and that is aside from all the sweet stuff, remember that fruits are good but they are Sweet also. Reminded about the blood (3) Obesity (BMI 30-39.9): Code(s): E66.9 - Obesity, unspecified Category: Medical Plan: Diet and exercise (4) Hypertension: Code(s): I10 - Essential (primary) hypertension Category: Medical Qualifiers: Hypertension type: primary hypertension Qualified Code(s): I10 - Essential (primary) hypertension Plan: Continue with blood pressure medication. Decrease salt intake and exercise on lisinopril hydrochlorothiazide blood work requested (5) Generalized anxiety disorder: Comment: Dr. Gisel Conde every 6 months Code(s): F41.1 - Generalized anxiety disorder Category: Medical Plan: Continue with counseling and therapy (6) Yeast infection: Code(s): B37.9 - Candidiasis, unspecified Category: Medical Plan: Antifungal prescription sent in (7) Nodule of finger of right hand: Code(s): R22.31 - Localized swelling, mass and lump, right upper limb Category: Medical Plan: Referral to orthopedics done Orders: Orders Influenza [id number] Immunization Today Z23 - Encounter for immunization Referrals Orthopedics Referral R22.31 - Localized swelling, mass and lump, right upper limb Medications: New fluconazole 150 mg PO Q3D 2 tabs 0RF 2 doses B37.9 - Candidiasis, unspecified
== END 2024-04-14 10:05 | disposition home or self-care (01) ==
LOC: HO.HMCH 09:46
PROVIDERS: PCP Internal Medicine; Visit Provider Internal Medicine
DX: R73.02 Impaired glucose tolerance (oral) (principal); Z80.0 Family history of malignant neoplasm of digestive organs; E66.9 Obesity, unspecified; Z68.33 Body mass index [BMI] 33.0-33.9, adult; I10 Essential (primary) hypertension; F41.1 Generalized anxiety disorder; B37.9 Candidiasis, unspecified; R22.31 Localized swelling, mass and lump, right upper limb

== ENCOUNTER → 2024-04-14 09:46 | Outpatient (BNVA) | payer OTHER, SELFPAY | PROVIDERS: PCP Internal Medicine; Visit Provider Internal Medicine | DX: I10 Essential (primary) hypertension (principal); R73.02 Impaired glucose tolerance (oral); E66.9 Obesity, unspecified; Z68.33 Body mass index [BMI] 33.0-33.9, adult; F41.1 Generalized anxiety disorder; B37.9 Candidiasis, unspecified; R22.31 Localized swelling, mass and lump, right upper limb; Z80.0 Family history of malignant neoplasm of digestive organs; Z23 Encounter for immunization | CPT/HCPCS: 90471; 90656 ==

== ENCOUNTER 2024-05-26 10:04 | Outpatient (AMB) | payer OTHER, SELFPAY ==
--- NOTE | 2024-05-26 10:06 | MHC.OFFVIS ---
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 Patient reports this has been on going on for a few months. She mentions that her pain is constant. Describes pain as sharp and sore. Doesn't reports difficulty with lifting, gripping, grasping, and squeezing. Patient hasnt tried any medicaitons for the pain or any previous treatments. 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 The patient states that this mass is not painful to the touch, but does begin to get sore after repetitive use of the hand. The patient does state this mass has caused an indentation of her right ring finger nail. Patient states she is open to any treatment options available to her. No other acute complaints or concerns at this time. [facility] Medical History (Updated 05/26/24 @ 11:22 by DESTIN Chowdhury) Anxiety and depression Annual physical exam Breast cancer screening Anemia Referral of patient Shoulder pain Gallbladder polyp Fatty liver Anemia History of renal calculi Toe fracture, left Depression Surgical History H/O colonoscopy H/O dilation and curettage History of hysteroscopy History of bunionectomy History of section Family History Father Colon cancer Maternal Grandmother Breast cancer Paternal Grandfather CAD (coronary artery disease) Father CAD (coronary artery disease) Social History (Updated 05/26/24 @ 10:13 by Archana Torres) Household Members: Significant Other and Children Housing: House Alcohol intake: current Alcohol intake frequency: holidays/special occasions only Comment: ocne a week glass Patient Tobacco Use Status: Never used Tobacco Tobacco use type: Cigarette e-Cigarette/Vaping Use: Never Used Second Hand Smoke Exposure: No service: No Current occupational status: employed 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 Neuro: Normal sensation of the tips of all digits of the right hand at this time Vascular: Cap refill brisk Pain: No tenderness to palpation of the mass of the dorsal aspect of the distal right ring finger No pain with range of motion testing of the right hand ROM: Patient is able to make a closed fist and extend all digits of the right fully Skin: No lacerations or abrasions. General: There is a small, approximately 0.5 cm in diameter fluid filled mass noted on the distal and dorsal aspect of the right ring finger, at the level of the DIP joint extending distally. There is noted ridging of the nail of the right ring finger at the level of the mass No ecchymosis, erythema, or evidence of infection. Psych: Appears grossly normal Affect normal Attitude cooperative Assessment & Plan Assessment & Plan (1) Ganglion cyst of finger of right hand: Code(s): M67.441 - Ganglion, right hand Category: Medical Plan 1. Mucous cyst of right ring finger I educated the patient about the condition. I discussed both operative and nonoperative treatment options. The patient would like to proceed with surgery. The risks and benefits of operative treatment were discussed with the patient and the patient wishes to proceed with surgery. These risks include, but are not limited to, risk of damage to blood vessels, nerves, tendons, infection, recurrence, incomplete relief of preoperative symptoms, persistent pain, possible need for further surgery, and the risks associated with regional blocks and/or anesthesia. Plan is to take the patient to the operating room at some point in the next few weeks for the following procedures: 1. Mucous cyst excision of right ring finger under local anesthesia All of the preoperative paperwork including the consent was discussed today. All of the patient's questions were answered in the clinic today. The patient understands that they will be in contact with our neurosurgical nurse to discuss scheduling their procedure. Patient denies diabetes, blood thinners, asthma, heart issues, lung issues, kidney issues, or current smoking. Coding Level of Care Code New Pt Level 4 (57888) Diagnoses Ganglion cyst of finger of right hand M67.441
--- OUTSIDE RECORDS SUMMARY | 2024-05-27 00:02 | XMS_ITS | Data Portability ---
Author Organization [facility], [address] Address [address] [place] [address] Care Team Providers Care Telephone Messenger Name Role Phone [facility] Primary Care Provider Assessment No assessment recorded. Plan of Treatment Reminders Order Date Submit Date Provider Last Modified By Organization Details Last Modified Time Details Appointments None recorded. Lab None recorded. Referral None recorded. Procedures None recorded. Surgeries None recorded. Imaging None recorded. Medication Orders doxycycline hyclate 100 mg capsule [id number], [address] [place], [address], 4 12:49:15 benzonatate 100 mg capsule [id number], [address] [place], [address], 4 12:49:06 moxifloxaci n 0.5 % eye drops 2023 024 [id number], [address] [place], [address], 4 13:13:51 Patient TargetsNo targets recorded. Patient Instructions Encounter Date Encounter Id Patient Instructions Last Modified By Organization Details Last Modified Time 04/25/2023 [id number] cough: care instructions [email or web address] Not available 04/25/2023 15:07:48 Reason for Referral None Reported. Problems No Known Problems Medical Equipment None Reported. Allergies Allergen ID Allergen Name Allergen Category Reaction Reaction Severity Criticality Documentation Date Start Date Code Code System Note Provider Name and Address Organization Details Recorded Time 005803 Substance with sulfonami de structure and antibacte rial mechanism of action (substanc e) medicatio n Not available Not available Not available 04/25/2023 64492 8003 SNOMED Dorothea thakur, PA - [facility] 3 14:54:33 [id number] Augmentin medicatio n Not available Not available Not available 04/25/2023 20103 2 RxNorm Dorothea thakur, PA - [facility] 14:54:38 096994 Medicinal product containin g penicilli n and acting as antibacte rial agent (product) medicatio n Not available Not available Not available 04/25/2023 31433 05 SNOMED Dorothea thakur, PA - [facility] 14:54:49 Medications Name Sig Start Date Stop Date Status Note LastModified by Organization Details LastModified Time doxycycline hyclate 100 mg capsule TAKE 1 CAPSULE BY MOUTH TWICE A DAY FOR 10 DAYS 08/16 completed Not Available Not Available Not Available azithromyci n 250 mg tablet TAKE 2 TABLETS BY MOUTH TODAY, THEN TAKE 1 TABLET DAILY FOR 4 DAYS 04/25 completed Not Available Not Available Not Available prednisone 20 mg tablet TAKE 3 TABLETS BY MOUTH ONCE DAILY 04/25 completed Not Available Not Available Not Available benzonatate 100 mg capsule TAKE 1 CAPSULE BY MOUTH THREE TIMES A DAY FOR 10 DAYS 08/16 completed Not Available Not Available Not Available hydrochloro thiazide 12.5 mg capsule TAKE 1 CAPSULE BY MOUTH DAILY. 04/25 completed Not Available Not Available Not Available hydrochloro thiazide 25 mg tablet TAKE 1 TABLET BY MOUTH EVERY DAY active Not Available Not Available No t Available norethindro ne acetate 5 mg tablet TAKE 1 TABLET BY MOUTH THREE TIMES A DAY FOR 30 DAYS active Not Available Not Available No t Available fluocinolon e 0.01 % topical solution PLEASE SEE ATTACHED FOR DETAILED DIRECTION S active Not Available Not Available No t Available lisinopril 10 mg-hydrochl orothiazide 12.5 mg tablet TAKE 1 TABLET BY MOUTH EVERY DAY active Not Available Not Available No t Available betamethaso ne dipropionat e 0.05 % topical ointment PLEASE SEE ATTACHED FOR DETAILED DIRECTION S active Not Available Not Available No t Available fluoxetine 20 mg capsule TAKE 2 CAPSULES BY MOUTH EVERY MORNING active Not Available Not Available No t Available clotrimazol e 1 % topical cream APPLY TOPICALLY TO RASH UNDER BREASTS TWICE DAILY UNTIL CLEAR, AND THEN USE FOR 1 ADDITIONA L WEEK. 04/25 completed Not Available Not Available Not Available mometasone 0.1 % topical cream PLEASE SEE ATTACHED FOR DETAILED DIRECTION S active Not Available Not Available No t Available moxifloxaci n 0.5 % eye drops INSTILL 1 DROP INTO AFFECTED EYE(S) BY OPHTHALMI C ROUTE 3 TIMES PER DAY 2023 active Not Available Not Available Not Avai lable bupropion HCl XL 150 mg 24 hr tablet, extended release TAKE 1 TABLET BY MOUTH EVERY DAY IN THE MORNING active Not Available Not Available No t Available Vienva 0.1 mg-20 mcg tablet TAKE 1 TABLET BY MOUTH EVERY DAY (TAKE ACTIVE PILLS, SKIP PLACEBO AND START NEXT PACK) 04/25 completed Not Available Not Available Not Available Vitals Date Recorded Body height Body mass index (BMI) Body weight Respiratory rate Body temperature Oxygen saturation Oxygen saturation in Arterial blood by Pulse oximetry Heart rate Systolic blood pressure Diastolic blood pressure Provider Name and Address Organization Details Last Updated DateTime 3 160.02 cm 33.7 kg/m2 12687.5 5 g 18 /min 98.6 [degF] 99 % 99 % 78 /min 128 mm[Hg] 85 mm[Hg] Dorothea Malone PA - [facility] 3 14:58:46 Date Recorded Body height Body mass index (BMI) Body weight Respiratory rate Body temperature Oxygen saturation Oxygen saturation in Arterial blood by Pulse oximetry Heart rate Systolic blood pressure Diastolic blood pressure Provider Name and Address Organization Details Last Updated DateTime 4 160.02 cm 34.5 kg/m2 20084.5 1 g 16 /min 97.7 [degF] 97 % 97 % 77 /min 111 mm[Hg] 80 mm[Hg] DAGO WONG PA - [facility] 4 12:51:37 Social History Question Answer Notes LastModified by Organizat ion Details LastModified Time Tobacco Smoking Status Never Smoker Dorothea thakur PA - [facility] 04/25/2023 14:57:11 What Is Your Level Of Alcohol Consumption? None Information not available 04/25/2023 Have You Had A Flu Shot This Season? No Information not available 04/25/2023 Do You Or Have You Ever Used Any Other Forms Of Tobacco Or Nicotine? No Information not available 04/25/2023 Sex: Unknown Functional Status None recorded. Mental Status None recorded. Family History Relationship Description Onset Age of this Age Resolved Age Notes LastModified by Organization Details LastModified Time Father Family history of cancer of colon Not available 2022 14:56:58 Medical History No medical history recorded. Gynecological History Statement/Question Response Date of LMP Is there any chance of ? No Obstetrics History GPAL:G 0 P 0 0 0 0 Past Encounters Encounter ID Performer Location Encounter Start Date Encounter Closed Date Diagnosis/Indication Diagnosis SNOMED-CT Code Diagnosis ICD10 Code [id number] Alison5Flavia Bl[address] [address] 12/01/2017 18:16:29 12/01/2017 20:30:41 [id number] Thomas [address] [address] 11/07/2015 19:19:56 11/07/2015 20:08:[id number] [address] 04/06/2015 12:51:59 04/06/2015 13:26:38 [id number] [place] [address] [place] [address] 04/25/2023 14:47:06 04/25/2023 15:08:23 Acute bronchitis 56688863 J20.9 [id number] [place] [address] [place] [address] 2023 12:33:31 2023 13:14:33 Acute conjunctivitis of bilateral eyes 0167850089 95464 H10.33 Health Concerns Section Related Observation LastModified by Organization Detai ls LastModified Time None Recorded Concern Status LastModified by Organization Details LastModified Time None Recorded Advance Directives Directive None Recorded Payers Encounter Date Sequence Insurance Name Policy Number Policy Browne Covered Member ID Browne Member ID Guarantor Name 04/06/2015 1 [facility] [id number] [employer] [id number] Angelica Cohen Tono 11/07/2015 1 [facility] [id number] [employer] [id number] Angelica Cohen Tono 12/01/2017 1 [facility] [id number] [employer] [id number] Angelica Cohen Tono 04/25/2023 1 [facility] [id number] Art[employer] [id number] Angelica Cohen Tono 2023 1 [facility] [id number] [employer] [id number] Angelica Cohen Tono Notes Date Note Type Note Provider Name and Address Organization Details Recorded Time 3 text/html CoughReported bypatient.source of patient informationInformation obtained from patient; Patient arrived at Urgent Care ambulatory Quality:productive cough Severity:worsening; moderate Duration:8 days Timing:worsening Context:Patient denies vaping; non-smoker Associated Symptoms:no fever; no chills; no chest pain; no heartburn; no nausea; no vomiting; no edema; no agitation; no wheezing; no post nasal drip Girish Wallace MD [address] [place], [address], [employer] 05/02/2023 12:16:33 4 text/html Eye problemsReported bypatient.source of patient informationInformation obtained from patient; Patient arrived at Urgent Care ambulatory Location:bilateral Eye Symptoms:discharge;watery; itching Severity:moderate Onset/Timindays Modifying Factors:nothing gives relief; OTC medication; sleeps in contacts; new glasses; not seeing eye doctor yearly Girish Wallace MD [address] [place], [address], [employer] 08/24/2023 19:46:42 OBGyn Episode No OBEpisode recorded.
== END 2024-05-26 10:36 | disposition home or self-care (01) ==
PROVIDERS: PCP Internal Medicine
DX: M67.441 Ganglion, right hand (principal)
CPT/HCPCS: 99204

== ENCOUNTER → 2024-05-26 10:04 | Outpatient (BNVA) | payer OTHER, SELFPAY | PROVIDERS: PCP Internal Medicine ==

== ENCOUNTER 2024-07-02 08:48 | Outpatient (REF) | payer OTHER, SELFPAY ==
[2024-07-02 09:11] LABS: MANUAL DIFF FLAG NO
[2024-07-02 09:43] LABS: Basophils Absolute Auto 0.1 X10*3/uL (0.0-0.2); Basophils Percent Auto 1.3 % (0-2); Eosinophils Absolute Auto 0.1 X10*3/uL (0.0-0.4); Eosinophils Percent Auto 1.3 % (0-4); Hematocrit 44.8 % (37.0-47.0); Imm Gran Abs Auto 0.15 X10*3/uL (0.00-0.03); Lymphocytes Absolute Auto 2.2 X10*3/uL (1.2-4.9); Lymphocytes Percent Auto 28.5 % (20-40); Mean Corpuscular HGB Conc 33.5 g/dl (31.0-35.0); Mean Corpuscular Hemoglobin 30.1 pg (27.0-33.0); Mean Platelet Volume 10.1 fL (9.4-12.3); Monocytes Absolute Auto 0.4 X10*3/uL (0.1-1.2); Monocytes Percent Auto 5.8 % (2-11); Neutrophils Absolute Auto 4.6 x10*3/uL (2.0-8.3); Neutrophils Percent Auto 61.1 % (45-73); Platelet Count 437 X10*3/uL (160-400); Red Blood Count 4.98 X10*6/uL (4.20-5.50); Red Cell Distribution Width 13.5 % (11.0-16.0); White Blood Count 7.6 X10*3/uL (4.8-10.8)
[2024-07-02 09:59] LABS: Estimated Average Glucose 114 mg/dL; Hemoglobin A1C 146.1172 umol/L; Hemoglobin A1c % 5.6 % (<6.0); Total Hemoglobin (HGBA1C) 3907.8793 umol/L
[2024-07-02 10:38] LABS: Alanine Aminotransferase 38 U/L (0-31); Albumin Level 4.4 g/dL (3.5-5.0); Alkaline Phosphatase 46 U/L (39-117); Anion Gap 10 (12-20); Aspartate Amino Transferase 31 U/L (5-31); Bilirubin Total 0.7 mg/dL (0.0-1.0); Blood Urea Nitrogen 16 mg/dL (9-16); Calcium 9.5 mg/dL (8.4-10.2); Carbon Dioxide 25 mmol/L (22-29); Chloride 107 mmol/L (96-108); Estimated Glomerular Filt Rate 55; Glucose Random 113 mg/dL (60-115); Potassium 4.5 mmol/L (3.3-5.1); Sodium 137 mmol/L (135-145); Total Protein 7.9 g/dL (6.5-8.0); Vitamin D 25-OH Total 23.2 ng/mL (>30)
[2024-07-02 10:47] LABS: Thyroid Stimulating Hormone 0.71 uIU/mL (0.32-4.0)
[2024-07-02 10:53] LABS: Folate 8.5 ng/mL (> or = 4.0); Vitamin B12 < 148 pg/mL (200-900)
== END 2024-07-02 08:49 | disposition home or self-care (01) ==
LOC: HO.LAB 08:48
PROVIDERS: Absent Provider Nurse Practitioner; PCP Internal Medicine; Visit Provider Internal Medicine
DX: R73.02 Impaired glucose tolerance (oral) (principal); Z78.0 Asymptomatic menopausal state
CPT/HCPCS: 36415; 80053; 82306; 82607; 82746; 83036; 84439; 84443; 85025

== ENCOUNTER 2024-07-08 08:28 | Day surgery (SDC) | payer OTHER, SELFPAY ==
--- NOTE | 2024-07-07 13:02 | HO.ANESPROP2 ---
Documented by User: Yoly Caballero NP 07/07/24 13:02 HPI - Anesthesia Eval Consult details Narrative: 43yo F for Colonoscopy PMFSH Active Problems Active Problems: All Active Problems Ganglion cyst of finger of right hand (Acute) Nodule of finger of right hand (Acute) Yeast infection (Acute) Generalized anxiety disorder (Acute) Family history of colon cancer (Acute) Hemorrhoids (Acute) Impaired glucose tolerance (Acute) Obesity (BMI 30-39.9) (Acute) Hypertension (Acute) Acute bronchitis (Acute) Vitamin B12 deficiency (Acute) Macromastia (Acute) Anemia (Acute) Shoulder pain (Acute) Past Medical History Medical History HTN, goal below 140/80 Annual physical exam Breast cancer screening Anxiety and depression Anemia Shoulder pain Referral of patient Gallbladder polyp Fatty liver Anemia History of renal calculi Toe fracture, left Depression Family History Family History Father Colon cancer Maternal Grandmother Breast cancer Paternal Grandfather CAD (coronary artery disease) Father CAD (coronary artery disease) Surgical History Surgical History H/O colonoscopy H/O dilation and curettage History of hysteroscopy History of bunionectomy History of section Social History Social History Household Members: Significant Other and Children Housing: House Alcohol intake: current Alcohol intake frequency: does not drink Comment: ocne a week glass Patient Tobacco Use Status: Never used Tobacco Tobacco use type: Cigarette e-Cigarette/Vaping Use: Never Used Second Hand Smoke Exposure: No Are you DNR?: No Advance Directives: No Advance Directives Information Provided: Yes service: No Current occupational status: employed 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 Cognitive needs: No Hearing needs: No Vision needs: Yes Meds Allergies Allergy/AdvReac Type Severity Reaction Status Date / Time celecoxib [From CELEBREX] Allergy Severe MUSCLE Verified 05/26/24 10:12 SWELLING clavulanic acid Allergy Severe HIVES Verified 05/26/24 10:12 [From AUGMENTIN] penicillin V Allergy Severe rash Verified 05/26/24 10:12 Sulfa (Sulfonamide Allergy Mild SWELLING Verified 05/26/24 10:12 Antibiotics) codeine [Codeine] AdvReac Mild NAUSEA & Verified 05/26/24 10:12 VOMITING Home Medications ?Medication ?Instructions ?Recorded ?Confirmed ?Last Taken ?Type fluocinolone 0.01 % topical 1 appl topical DAILY 05/22/20 10/14/23 Unknown History solution fluoxetine 40 mg capsule (Prozac) 40 mg PO DAILY 05/22/20 10/14/23 Unknown History betamethasone, augmented 0.05 % 1 appl topical DAILY PRN Dry Skin 09/14/21 10/14/23 Unknown History topical ointment norethindrone acetate 5 mg tablet 5 mg PO DAILY 02/19/22 10/14/23 Unknown History (Aygestin) bupropion HCl 300 mg 24 hr tablet, 300 mg PO QAM 10/14/23 10/14/23 Unknown History extended release (Wellbutrin XL) Assessment and Plan Assessment Anesthesia Assessment: Chart Reviewed Documented by User: Ariadna Weaver MD 07/08/24 09:49 PMFSH Active Problems Active Problems: All Active Problems Ganglion cyst of finger of right hand (Acute) Nodule of finger of right hand (Acute) Yeast infection (Acute) Generalized anxiety disorder (Acute) Family history of colon cancer (Acute) Hemorrhoids (Acute) Impaired glucose tolerance (Acute) Obesity (BMI 30-39.9) (Acute) Hypertension (Acute) Acute bronchitis (Acute) Vitamin B12 deficiency (Acute) Macromastia (Acute) Anemia (Acute) Shoulder pain (Acute) Denies CHIDI Past Medical History Medical History HTN, goal below 140/80 Annual physical exam Breast cancer screening Anxiety and depression Anemia Shoulder pain Referral of patient Gallbladder polyp Fatty liver Anemia History of renal calculi Toe fracture, left Depression Family History Family History Father Colon cancer Maternal Grandmother Breast cancer Paternal Grandfather CAD (coronary artery disease) Father CAD (coronary artery disease) Family history of problems with anesthesia: No Surgical History Surgical History H/O colonoscopy H/O dilation and curettage History of hysteroscopy History of bunionectomy History of section History of Problems with Anesthesia: No Social History Social History Household Members: Significant Other and Children Housing: House Alcohol intake: current Alcohol intake frequency: does not drink Comment: ocne a week glass Patient Tobacco Use Status: Never used Tobacco Tobacco use type: Cigarette e-Cigarette/Vaping Use: Never Used Second Hand Smoke Exposure: No Are you DNR?: No Advance Directives: No Advance Directives Information Provided: Yes service: No Current occupational status: employed 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 Cognitive needs: No Hearing needs: No Vision needs: Yes Meds Allergies Allergy/AdvReac Type Severity Reaction Status Date / Time celecoxib [From CELEBREX] Allergy Severe MUSCLE Verified 05/26/24 10:12 SWELLING clavulanic acid Allergy Severe HIVES Verified 05/26/24 10:12 [From AUGMENTIN] penicillin V Allergy Severe rash Verified 05/26/24 10:12 Sulfa (Sulfonamide Allergy Mild SWELLING Verified 05/26/24 10:12 Antibiotics) codeine [Codeine] AdvReac Mild NAUSEA & Verified 05/26/24 10:12 VOMITING Home Medications ?Medication ?Instructions ?Recorded ?Confirmed ?Last Taken ?Type fluocinolone 0.01 % topical 1 appl topical DAILY 05/22/20 10/14/23 Unknown History solution fluoxetine 40 mg capsule (Prozac) 40 mg PO DAILY 05/22/20 10/14/23 Unknown History betamethasone, augmented 0.05 % 1 appl topical DAILY PRN Dry Skin 09/14/21 10/14/23 Unknown History topical ointment norethindrone acetate 5 mg tablet 5 mg PO DAILY 02/19/22 10/14/23 Unknown History (Aygestin) bupropion HCl 300 mg 24 hr tablet, 300 mg PO QAM 10/14/23 10/14/23 Unknown History extended release (Wellbutrin XL) Exam Height,Weight and Vital Signs: Height 5 ft 3 in Weight 84.822 kg Vital Signs Temp Pulse Resp BP Pulse Ox O2 Del Method 07/08/24 08:36 97.5 F 92 16 117/72 99 Room Air Pertinent Lab Results Pertinent Lab Results: Lab Results 07/08/24 Range/Units 08:31 Urine Test NEGATIVE (NEGATIVE) Airway Mallampati Class: II TM Dist: >3cm Neck ROM: Full Loose/Missing/Broken Teeth: Yes ([place] teeth extracted. Denies broken or loose teeth) Heart: RRR Lungs: CTAB Assessment and Plan Assessment Anesthesia Assessment: Anesthesia Plan Discussed and Chart Reviewed Final Anesthetic Review Family History of Problems with Anesthesia: No History of Problems with Anesthesia: No NPO: Yes ASA Class: II Final Preanesthetic Review: No Changes in Pt Med Stat, Meds/Allgs Chart Reviewed, Consent Obtained/Reviewed and Anes Risks/Benef Reviewed Patient Risk: Intermediate Procedure Risk: Low Assessment/Block/Sedation in SS: Assess/Block/Sedation-SS Anesthetic Plan Anesthetic Plan: TIVA Disposition: Standard PACU
[2024-07-07 13:25] VITALS: BMI 33.1
[2024-07-08 08:36] VITALS: BP 117/72; PULSE 92; RESP 16; TEMP 36.4; O2SAT 99
[2024-07-08 08:45] LABS: UPreg QC Valid YES; Urine Pregnancy NEGATIVE (NEGATIVE)
--- OUTSIDE RECORDS SUMMARY | 2024-07-08 08:50 | XMS_ITS | Data Portability ---
Author Organization [employer], [address] Address [address] [place] [address] Care Team Providers Care Director Of Payroll Name Role Phone [facility] Primary Care Provider [phone] Assessment No assessment recorded. Plan of Treatment Reminders Order Date Submit Date Provider Last Modified By Organization Details Last Modified Time Details Appointments None recorded. Lab None recorded. Referral None recorded. Procedures None recorded. Surgeries None recorded. Imaging None recorded. Medication Orders doxycycline hyclate 100 mg capsule [id number], [address] [place], [address], 4 12:49:15 benzonatate 100 mg capsule [id number], [address] [place], [address], 4 12:49:06 moxifloxaci n 0.5 % eye drops 2023 024 [facility] #[id number], [address] [place], [address], 4 13:13:51 Patient TargetsNo targets recorded. Patient Instructions Encounter Date Encounter Id Patient Instructions Last Modified By Organization Details Last Modified Time 04/25/2023 [id number] cough: care instructions [email or web address] Not available 04/25/2023 15:07:48 Reason for Referral None Reported. Problems No Known Problems Medical Equipment None Reported. Allergies Allergen ID Allergen Name Allergen Category Reaction Reaction Severity Criticality Documentation Date Start Date Code Code System Note Provider Name and Address Organization Details Recorded Time 225983 Substance with sulfonami de structure and antibacte rial mechanism of action (substanc e) medicatio n Not available Not available Not available 04/25/2023 04534 8003 SNOMED Dorothea thakur, PA - [facility] 3 14:54:33 052558 Augmentin medicatio n Not available Not available Not available 04/25/2023 47798 2 RxNorm Dorothea thakur, PA - [facility] 14:54:38 255504 Product containin g penicilli n and antibioti c (product) medicatio n Not available Not available Not available 04/25/2023 77787 05 SNOMED [facility] [...] Not Available Vitals Date Recorded Body height Provider Name an d Address Organization Details Last Updated DateTime 04/25/2023 160.02 cm Dorothea Malone PA - [facility] 14:57:41 Date Recorded Body mass index (BMI) Body weight Provider Name and Address Organization Details Last Updated DateTime 04/25/2023 33.7 kg/m2 46355.55 g Dorothea Malone PA - [facility] 04/25/2023 14:57:45 Date Recorded Pain severity - 0-10 verbal numeric rating [Score] - Reported Provider Name and Address Organization Details Last Updated DateTime 04/25/2023 2 Dorothea Malone PA - [facility] 14:57:54 Date Recorded Respiratory rate Provider Name a nd Address Organization Details Last Updated DateTime 04/25/2023 18 /min Dorothea Malone PA - [facility] 14:58:38 Date Recorded Body temperature Provider Name a nd Address Organization Details Last Updated DateTime 04/25/2023 98.6 [degF] Dorothea Malone PA - [facility] 1 06/25/2022 14:58:40 Date Recorded Oxygen saturation Oxygen saturation in Arterial blood by Pulse oximetry Provider Name and Address Organization Details Last Updated DateTime 04/25/2023 99 % 99 % Dorothea Malone PA - [facility] 04/25/2023 14:58:44 Date Recorded Heart rate Provider Name an d Address Organization Details Last Updated DateTime 04/25/2023 78 /min Dorothea Malone PA - [facility] 14:58:53 Date Recorded Body height Provider Name an d Address Organization Details Last Updated DateTime 2023 160.02 cm DAGO WONG PA - [facility] 2023 12:45:49 Date Recorded Body mass index (BMI) Body weight Provider Name and Address Organization Details Last Updated DateTime 2023 34.5 kg/m2 38998.51 g DAGO WONG PA - [facility] 2023 12:48:30 Date Recorded Pain severity - 0-10 verbal numeric rating [Score] - Reported Provider Name and Address Organization Details Last Updated DateTime 2023 0 DAGO WONG PA - [facility] 2023 12:48:35 Date Recorded Respiratory rate Provider Name a nd Address Organization Details Last Updated DateTime 2023 16 /min DAGO WONG PA - [facility] 2023 12:50:28 Date Recorded Body temperature Provider Name a nd Address Organization Details Last Updated DateTime 2023 97.7 [degF] DAGO WONG PA - [facility] 2023 12:50:29 Date Recorded Oxygen saturation Oxygen saturation in Arterial blood by Pulse oximetry Provider Name and Address Organization Details Last Updated DateTime 2023 97 % 97 % DAGOLa WONG PA - [facility] 2023 12:50:49 Date Recorded Heart rate Provider Name an d Address Organization Details Last Updated DateTime 2023 77 /min DAGOLa WONG PA - [facility] 2023 12:50:52 Date Recorded Systolic blood pressure Diastolic blood pressure Provider Name and Address Organization Details Last Updated DateTime 04/25/2023 128 mm[Hg] 85 mm[Hg] Dorothea Malone PA - [facility] 04/25/2023 14:58:46 Date Recorded Systolic blood pressure Diastolic blood pressure Provider Name and Address Organization Details Last Updated DateTime 2023 111 mm[Hg] 80 mm[Hg] DAGO WONG PA - [facility] 2023 12:51:37 Social History Question Answer Notes LastModified by Organizat ion Details LastModified Time Tobacco Smoking Status Never Smoker Dorothea Malone ofe PA - [facility] 04/25/2023 14:57:11 What [...] Diagnosis/Indication Diagnosis SNOMED-CT Code Diagnosis ICD10 Code Diagnosis Note [id number] [address] [place] [address] 12/01/2017 18:16:29 12/01/2017 20:30:41 [id number] [address] [place] [address] 11/07/2015 19:19:56 11/07/2015 20:08:53 [id number] [address] [place] [address] 04/06/2015 12:51:59 04/06/2015 13:26:38 [id number] [place] [address] [place] [address] 04/25/2023 14:47:06 04/25/2023 15:08:23 Acute bronchitis [id number] J20.9 Please follow up with PCP or Urgent Care in 3-5 days if no improvemen t or if any new symptoms occur that are concerning .Call 911 or go to nearest ER if you develop any shortness of breath, chest pain, severe headache, dizziness, or other concerning symptoms [id number] [place] [address] [place] [address] 2023 12:33:31 2023 13:14:33 Acute conjunctivitis of bilateral eyes [id number] 23453 H10.33 Conjunctiv itis (pink eye), either viral or bacterial, can infect eye makeup containers , such as for mascara, eyeliner and eye shadow. You should throw out any of these that you have worn a day before and since developing eye symptoms. Do not wear any contacts or eye makeup while you have symptoms and for 2 days after symptoms have resolved.S ROBERT EYE FLUSH 2-3 TIMES PER DAY AND NEVER AFTER ANTIBIOTIC DROPS/OINT MENT.WARM COMPRESSES 2-3 TIMES PER DAY. NEVER USE THE SAME SIDE OF COMPRESS FOR OPPOSITE EYE.YOU SHOULD NOTICE SOME IMPROVEMEN T IN THE NEXT 1-2 DAYS. IF SYMPTOMS WORSEN, PLEASE SEE AN TITLE PROCESSOR OR GO DIRECTLY TO THE ER FOR FURTHER EVALUATION AND MANAGEMENT Health Concerns Section Related Observation LastModified by Organization Detai ls LastModified Time None Recorded Concern Status LastModified by Organization Details LastModified Time None Recorded Advance Directives Directive None Recorded Payers Encounter Date Sequence Insurance Name Policy Number Policy Browne Covered Member ID Browne Member ID Guarantor Name 04/06/2015 1 [facility] [id number] [employer] [id number] Angelica [employer] 11/07/2015 1 [facility] [id number] [employer] [id number] Angelica Power 12/01/2017 1 [facility] [id number] [employer] [id number] Angelica Power 04/25/2023 1 [facility] [id number] Arturo [employer] [id number] Angelica Power 2023 1 [facility] [id number] [employer] [id number] Angelica oPwer Notes Date Note Type Note Provider Name [...] Girish Wallace MD [address] [place], [address], [employer] - [facility] 05/02/2023 12:16:33 4 text/html Eye problemsReported bypatient.source of patient informationInformation obtained from patient; Patient arrived at Urgent Care ambulatory Location:bilateral Eye Symptoms:discharge;watery; itching Severity:moderate Onset/Timindays Modifying Factors:nothing gives relief; OTC medication; sleeps in contacts; new glasses; not seeing eye doctor yearly Girish Wallace MD [address] [place], [address], PA - [facility] 08/24/2023 19:46:42 OBGyn Episode No OBEpisode recorded.
--- NOTE | 2024-07-08 08:51 | MHC.SHP ---
Pre-Procedural Eval Section A - 24 Hr Update-Section A only Date of Service: 07/08/24 Section B - Complete if H&P > 30 days Chief Complaint: Family history of malignant neoplasm of digestive Details of Present Illness: Hypertension Obesity Depression with anxiety Fatty liver History of toe fracture Nephrolithiasis * SURGICAL HISTORY section X2 D&C Bunionectomy * ALLERGIES Celebrex clavulanic acid - BUT OK WITH AMOX Penicillin Sulfa Codeine * Present Medications: see Short Stay Collaborative assessment Allergies: Allergies Allergy/AdvReac Type Severity Reaction Status Date / Time celecoxib [From CELEBREX] Allergy Severe MUSCLE Verified 05/26/24 10:12 SWELLING clavulanic acid Allergy Severe HIVES Verified 05/26/24 10:12 [From AUGMENTIN] penicillin V Allergy Severe rash Verified 05/26/24 10:12 Sulfa (Sulfonamide Allergy Mild SWELLING Verified 05/26/24 10:12 Antibiotics) codeine [Codeine] AdvReac Mild NAUSEA & Verified 05/26/24 10:12 VOMITING Review of Systems Review of Systems Comment: Ten point ROS negative Exam Exam Comment: Gen appear: No acute distress HEENT: no icterus Chest: No overt resp distress Abd: soft, nontender, nondistended Psych: Stable affect, answering questions appropriately Neuro: A/Ox3 noted to move all extremities spontaneously Ext: no peripheral edema Plan Diagnosis/Plan: Unchanged I have reviewed the history and physical and performed a pertinent physical examination on my patient. No changes have occurred unless specified. Time Spent With Patient Time: Total time managing care of this patient today ____ minutes.
[2024-07-08] MEDS: Lactated Ringers 1,000 ML 100 ML IVCONT (09:00)
--- NOTE | 2024-07-08 10:20 | P.OPN-COLO_ITS ---
Colonoscopy Operative Note Operative Note Date of Service: 07/08/24 Narrative: Procedure: Colonoscopy Indication: Family history of colon cancer Endoscopist: Carla Presley MD Anesthesia Provider: Loerne Medina CRNA Anesthesia type: MAC Instrument: Olympus [id number], PCF-H190L Consent: Indication, risks vs benefits, and alternatives were discussed with the patient who gave written informed consent to proceed. EKG, pulse, pulse oximetry and blood pressure were monitored throughout the procedure. Please see anesthesia flowsheet. Procedure: The patient was brought to the procedure room and placed in the prone position. IV medications were administered by the anesthesia provider in attendance. A digital rectal exam was performed which was abnormal due to finding of hemorrhoids. A distal attachment cap was affixed to the tip of the colonoscope which was then inserted through the anus and advanced through the colon to the cecum at 80 cm. Appendiceal orifice and ileocecal valve were identified. Mucosa was carefully examined under high definition white light as the instrument was slowly withdrawn in a retrograde panoramic fashion. Retroflexion was performed in rectum. The procedure was difficult due to fixed narrow sigmoid at 30 cm. There were no immediate obvious complications. The quality of the prep was BBPS: 2+3+3 = adequate Withdrawal time 6 minutes. Limitations: No limitations. Findings: Mucosa: Normal to cecum. Protruding lesions: * Medium internal hemorrhoids without stigmata of recent bleeding. Excavated lesions: * Moderate diverticulosis of sigmoid colon. Impression: 1. Normal colon mucosa 2. Diverticulosis 3. Internal hemorrhoids Recommendations: -Repeat colonoscopy in 5 years -Follow up in GI office as needed -Difficult colo - consider PCF scope and prone position to start
[2024-07-08 10:26] VITALS: BP 117/69; PULSE 88; RESP 18; TEMP 36.6; O2SAT 100
[2024-07-08 10:31] VITALS: O2SAT 99
[2024-07-08 10:41] VITALS: BP 118/78; PULSE 86; RESP 18; O2SAT 97
[2024-07-08 10:56] VITALS: BP 122/79; PULSE 86; RESP 18; TEMP 36.6; TEMP 36.8; O2SAT 97
== END 2024-07-08 11:36 | disposition home or self-care (01) ==
PROVIDERS: Nurse Practitioner; PCP Internal Medicine; Visit Provider Internal Medicine
PROC: 0DJD8ZZ Inspection of Lower Intestinal Tract, Via Natural or Artificial Opening Endoscopic (ICD-10-PCS; CPT 45378; principal; 2024-07-08 10:30)
DX: Z12.11 Encounter for screening for malignant neoplasm of colon (principal); Z80.0 Family history of malignant neoplasm of digestive organs; K57.30 Diverticulosis of large intestine without perforation or abscess without bleeding; K64.8 Other hemorrhoids; K76.0 Fatty (change of) liver, not elsewhere classified; I10 Essential (primary) hypertension; D64.9 Anemia, unspecified; F41.8 Other specified anxiety disorders; E66.9 Obesity, unspecified; Z68.32 Body mass index [BMI] 32.0-32.9, adult; Z87.442 Personal history of urinary calculi; Z88.0 Allergy status to penicillin; Z88.1 Allergy status to other antibiotic agents; Z88.2 Allergy status to sulfonamides; Z88.5 Allergy status to narcotic agent; Z98.890 Other specified postprocedural states
CPT/HCPCS: 45378; 81025; J2003; J2250; J2704

== ENCOUNTER → 2024-07-08 08:28 | Outpatient (BNV) | payer OTHER, SELFPAY | PROVIDERS: PCP Internal Medicine; Visit Provider Internal Medicine | DX: Z12.11 Encounter for screening for malignant neoplasm of colon (principal); Z80.0 Family history of malignant neoplasm of digestive organs; K57.30 Diverticulosis of large intestine without perforation or abscess without bleeding; K64.8 Other hemorrhoids | CPT/HCPCS: 45378 ==

== ENCOUNTER 2024-08-05 07:49 | Day surgery (SDC) | payer OTHER, SELFPAY ==
[2024-08-05 08:29] VITALS: BP 119/74; PULSE 89; RESP 14; TEMP 37.1; O2SAT 96; BMI 32.8
--- NOTE | 2024-08-05 09:01 | MHC.SHP ---
Pre-Procedural Eval Section A - 24 Hr Update-Section A only Date of Service: 08/05/24 The patient is an INPATIENT: No Changes since office visit: No Cold of Flu in the past 2 weeks, No New Medical Problems, No Changes in Medication and No Patient answered all questions The patient has been examined within 24 hours of the surgical procedure. The History & Physical has been completed within 30 days and I have reviewed it.: Yes Section B - Complete if H&P > 30 days Chief Complaint: Ganglion, right hand Allergies: Allergies Allergy/AdvReac Type Severity Reaction Status Date / Time celecoxib [From CELEBREX] Allergy Severe MUSCLE Verified 08/05/24 08:27 SWELLING clavulanic acid Allergy Severe HIVES Verified 08/05/24 08:27 [From AUGMENTIN] penicillin V Allergy Severe rash Verified 08/05/24 08:27 Sulfa (Sulfonamide Allergy Mild SWELLING Verified 08/05/24 08:27 Antibiotics) codeine [Codeine] AdvReac Mild NAUSEA & Verified 08/05/24 08:27 VOMITING Plan Diagnosis/Plan: Unchanged I have reviewed the history and physical and performed a pertinent physical examination on my patient. No changes have occurred unless specified. Time Spent With Patient Time: Total time managing care of this patient today ____ minutes.
--- NOTE | 2024-08-05 09:02 | P.OP_ITS ---
Operative Note Operative Note Date of Service: 08/05/24 Narrative: Operative Note Preop diagnosis: 1. 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 same Procedure: 1. Right ring finger mucous cyst excision Surgeon: Kierra Casanova MD [facility] Counselor: Conrad WEIR Anesthesia: Digital block using 1% lidocaine with epinephrine Findings: 4-5 mm mucous cyst over dorsal aspect of the D IP joint EBL: Less than 5 mL Tourniquet time: None Specimens: None Complications: None Disposition: Brought to recovery room in stable condition Plan: Follow-up for 7-10 days for wound check and suture removal Indications: The patient is 43 years old, with a right ring finger D IP joint osteoarthritis and a mucous cyst that has been unresponsive to nonoperative management. The risks and benefits of operative treatment inclu ding but not limited to risk of damage to blood vessels, nerves, tendons, infection, persistent pain, persistent symptoms, recurrence or possible need for additional surgery were discussed with the patient and the patient wishes to proceed with surgery. Procedure: Once consent was obtained a digital block was performed in the preop area using a combination of 1% lidocaine with epinephrine. The patient was then brought back to the operating suite and placed on the operative table in supine position. The right upper extremity was prepped and draped in a standard surgical fashion. Once assured that we had a good block, an L-shaped incision was made over the dorsal aspect of the right ring finger distal phalanx. The incision was made through the skin to the subcutaneous tissues using a #15 blade. Careful dissection was made down to the level of the mucous cyst and extensor mechanism using iris scissors. The 4-5 mm diameter mucous cyst was filled with clear viscous fluid consistent with a ganglion. It was dissected free from the surrounding tissues and removed from the finger. The wound was copiously irrigated with normal saline and hemostasis was obtained with a brief period of local pressure. The skin edges were reapproximated with some 5.0 Prolene suture material and a sterile dressing was applied. The patient appears to have tolerated the procedure well and with no complications. All digits were well vascularized at the conclusion of the case.
[2024-08-05 10:20] VITALS: BP 114/67; PULSE 84; RESP 16; O2SAT 96
== END 2024-08-05 10:34 | disposition home or self-care (01) ==
PROVIDERS: PCP Internal Medicine; Visit Provider Orthopaedic Surgery
PROC: (CPT 26160; principal; 2024-08-05 09:50)
DX: M67.441 Ganglion, right hand (principal); M19.041 Primary osteoarthritis, right hand; D64.9 Anemia, unspecified; F41.9 Anxiety disorder, unspecified; Z88.0 Allergy status to penicillin; Z88.2 Allergy status to sulfonamides; Z88.5 Allergy status to narcotic agent; Z88.8 Allergy status to other drugs, medicaments and biological substances
CPT/HCPCS: 26160; J0171; J2003

== ENCOUNTER → 2024-08-05 07:49 | Outpatient (BNV) | payer OTHER, SELFPAY | PROVIDERS: PCP Internal Medicine; Visit Provider Orthopaedic Surgery | DX: M71.341 Other bursal cyst, right hand (principal) | CPT/HCPCS: 26160 ==

== ENCOUNTER 2024-08-20 13:23 | Outpatient (AMB) | payer OTHER, SELFPAY ==
--- NOTE | 2024-08-20 13:40 | MHC.OFFVIS ---
Vital Signs 08/20/24 13:41 Height 5 ft 3 in Weight 183 lb BMI 32.4 Intake Visit Reasons: PO RT RF mucous cyst exc 08/05/24 AR Intake Note: Angelica is a 44 year old right hand dominant female who presents today post operatively s/p right ring finger mucous cyst excision DOS: 08/05/24 w/ Dr Casanova. States she has no pain just soreness. Allergies celecoxib [From CELEBREX] Allergy (Severe, Verified 08/20/24 13:44) MUSCLE SWELLING clavulanic acid [From AUGMENTIN] Allergy (Severe, Verified 08/20/24 13:44) HIVES penicillin V Allergy (Severe, Verified 08/20/24 13:44) rash Sulfa (Sulfonamide Antibiotics) Allergy (Mild, Verified 08/20/24 13:44) SWELLING codeine [Codeine] Adverse Reaction (Mild, Verified 08/20/24 13:44) NAUSEA & VOMITING HPI HPI PO RT RF mucous cyst exc 08/05/24 AR: Details: Angelica is a 44 year old right hand dominant female who presents today post operatively s/p right ring finger mucous cyst excision DOS: 08/05/24 w/ Dr Casanova. States she has no pain just soreness. Denies redness or discharge. No other acute complaints or concerns. [facility] Medical History HTN, goal below 140/80 Annual physical exam Breast cancer screening Anxiety and depression Anemia Shoulder pain Referral of patient Gallbladder polyp Fatty liver Anemia History of renal calculi Toe fracture, left Depression Surgical History H/O colonoscopy H/O dilation and curettage History of hysteroscopy History of bunionectomy History of section Family History Father Colon cancer Maternal Grandmother Breast cancer Paternal Grandfather CAD (coronary artery disease) Father CAD (coronary artery disease) Social History Household Members: Significant Other and Children Housing: House Alcohol intake: current Alcohol intake frequency: does not drink Comment: ocne a week glass Patient Tobacco Use Status: Never used Tobacco Tobacco use type: Cigarette e-Cigarette/Vaping Use: Never Used Second Hand Smoke Exposure: No service: No Current occupational status: employed 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 Neuro: Normal sensation of the tips of all digits of the right hand at this time Vascular: Cap refill brisk Pain: No tenderness to palpation of the incision site of the dorsal aspect of the distal right ring finger No pain with range of motion testing of the right hand ROM: Patient is able to make a closed fist and extend all digits of the right fully Skin: Well approximated and well healing icision on dorsal R RF at DIP joint General: No evidence of recurrence of mass There is noted ridging of the nail of the right ring finger at the level of the mass No ecchymosis, erythema, or evidence of infection. Psych: Appears grossly normal Affect normal Attitude cooperative Assessment & Plan Assessment & Plan (1) Ganglion cyst of finger of right hand: Code(s): M67.441 - Ganglion, right hand Category: Medical Plan 1. S/p R RF mucous cyst excision DOS 08/05/24 Patient appears to be recovering well postoperatively Patient is educated about the typical recovery course Sutures removed, steris applied Patient is educated that she will require no acute follow up with us, as she is recovering very well Patient is amenable to this plan Follow up as needed with any acute concerns Coding Level of Care Code Global (28826) Diagnoses Ganglion cyst of finger of right hand M67.441
[2024-08-20 13:41] VITALS: BMI 32.4
--- OUTSIDE RECORDS SUMMARY | 2024-08-20 14:58 | XMS_ITS | Data Portability ---
Author Organization DESTIN Del Angel [facility], [address] Address [address] [place] [address] Care Team Providers Care Foreclosure Field Inspector Name Role Phone [facility] Primary Care Provider Assessment No assessment recorded. Plan of Treatment Reminders Order Date Submit Date Provider Last Modified By Organization Details Last Modified Time Details Appointments None recorded. Lab None recorded. Referral None recorded. Procedures None recorded. Surgeries None recorded. Imaging None recorded. Medication Orders moxifloxaci n 0.5 % eye drops [address] [facility]/Pharmacy #[id number], [address] [place], [address], 4 13:13:51 doxycycline hyclate 100 mg capsule [address]/Pharmacy #[id number], [address] [place], [address], 4 12:49:15 benzonatate 100 mg capsule [address]/Pharmacy #[id number], [address] [place], [address], 4 12:49:06 Patient TargetsNo targets recorded. Patient Instructions Encounter Date Encounter Id Patient Instructions Last Modified By Organization Details Last Modified Time 04/25/2023 [id number] cough: care instructions [email or web address] Not available 04/25/2023 15:07:48 Reason for Referral None Reported. Problems No Known Problems Medical Equipment None Reported. Allergies Allergen ID Allergen Name Allergen Category Reaction Reaction Severity Criticality Documentation Date Start Date Code Code System Note Provider Name and Address Organization Details Recorded Time 340674 Substance with sulfonami de structure and antibacte rial mechanism of action (substanc e) medicatio n Not available Not available Not available 04/25/2023 68945 8003 SNOMED Dorothea Malone null, [place] - [facility] 3 14:54:33 535037 Augmentin medicatio n Not available Not available Not available 04/25/2023 13878 2 RxNorm Dorothea Malone null, [place] - [facility] 3 14:54:38 939058 Product containin g penicilli n (product) medicatio n Not available Not available Not available 04/25/2023 46138 8001 SNOMED Dorothea Malone null, PA - [facility] 14:54:49 Medications Name [...] height Body mass index (BMI) Body weight Pain severity - 0-10 verbal numeric rating [Score] - Reported Respiratory rate Body temperature Oxygen saturation Oxygen saturation in Arterial blood by Pulse oximetry Heart rate Systolic blood pressure Diastolic blood pressure Provider Name and Address Organization Details Last Updated DateTime 3 160.02 cm 33.7 kg/m2 75698.5 5 g 2 18 /min 98.6 [degF] 99 % 99 % 78 /min 128 mm[Hg] 85 mm[Hg] Dorothea Malone PA - [facility] 3 14:58:46 Date Recorded Body height Body mass index (BMI) Body weight Pain severity - 0-10 verbal numeric rating [Score] - Reported Respiratory rate Body temperature Oxygen saturation Oxygen saturation in Arterial blood by Pulse oximetry Heart rate Systolic blood pressure Diastolic blood pressure Provider Name and Address Organization Details Last Updated DateTime 4 160.02 cm 34.5 kg/m2 91172.5 1 g 0 16 /min 97.7 [degF] 97 % 97 % 77 /min 111 mm[Hg] 80 mm[Hg] DGAO WONG PA - [facility] 4 12:51:37 [...] SNOMED-CT Code Diagnosis ICD10 Code Diagnosis Note [id number] [facility] [address] [place] [address] 12/01/2017 18:16:29 12/01/2017 20:30:41 [id number] [facility] [address] [place] [address] 11/07/2015 19:19:56 11/07/2015 20:08:53 [id number] 2[address]_[facility] [address] [place] [address] 04/06/2015 12:51:59 04/06/2015 13:26:38 [id number] [place] [address] [place] [address] 04/25/2023 14:47:06 04/25/2023 15:08:23 Acute bronchitis 60905794 J20.9 Please follow up with PCP or Urgent Care in 3-5 days if no improvemen t or if any new symptoms occur that are concerning .Call 911 or go to nearest ER if you develop any shortness of breath, chest pain, severe headache, dizziness, or other concerning symptoms [id number] Girish Wallace MD [address] [place] [address] 2023 12:33:31 2023 13:14:33 Acute conjunctivitis of bilateral eyes [id number] 18229 H10.33 Conjunctiv itis (pink eye), either viral [...] DAYS. IF SYMPTOMS WORSEN, PLEASE SEE AN TICKET AGENT OR GO DIRECTLY TO THE ER FOR FURTHER EVALUATION AND MANAGEMENT Health Concerns Section Related Observation LastModified by Organization Detai ls LastModified Time None Recorded Concern Status LastModified by Organization Details LastModified Time None Recorded Advance Directives Directive None Recorded Payers Encounter Date Sequence Insurance Name Policy Number Policy Browne Covered Member ID Browne Member ID Guarantor Name 04/06/2015 1 [facility] [id number] [employer] [id number] Angelica [employer] 11/07/2015 1 [facility] [id number] [employer] [id number] [employer] 12/01/2017 1 [facility] [id number] [employer] [id number] Angelica [employer] 04/25/2023 1 [facility] [id number] [employer] [id number] [employer]ica [employer] [address] [place] [address] [id number] [employer] [id number] [employer] Notes Date Note Type Note Provider Name [...] no post nasal drip Girish Wallace [place] [facility], [address], [facility] 05/02/2023 12:16:33 4 text/html Eye problemsReported bypatient.source of patient informationInformation obtained from patient; Patient arrived at Urgent Care ambulatory Location:bilateral Eye Symptoms:discharge;watery; itching Severity:moderate Onset/Timindays Modifying Factors:nothing gives relief; OTC medication; sleeps in contacts; new glasses; not seeing eye doctor yearly Girish Wallace MD [address] [place], [address], [facility] 08/24/2023 19:46:42 OBGyn Episode No OBEpisode recorded.
--- OUTSIDE RECORDS SUMMARY | 2024-08-20 14:58 | XMS_ITS | Patient Health Record ---
Author Organization [facility] [place] Address [address] [address] Care Team Providers Care Joint Supervisor Name Role Phone Dustin Tiffaniemarisa Primary Care Provider Kimberli Fuchs Unavailable [phone] Allergies Allergen (clinical drug ingredient) Drug/Non Drug Allergy documented on EMR Reaction Allergy Type Onset Date Status amoxicillin / clavulanate Augmentin anaphylaxis shock Drug Allergy Active sulfa muscle swelling Drug Allergy A ctive Penicillin rash Drug Allergy Active Reason For Referral No Information Medications Medication SIG (Take, Route, Frequency, Duration) Notes Start Date End Date Status Fluocinolone Acetonide 0.01 % External for 14 Not-Taking FLUoxetine HCl 20 MG Oral for 90 Not-Taking PROzac 40 MG 1 capsule Orally Onc e a day 12/10/2017 Active Betamethasone Dipropionate 0.05 % External for 14 Not-Taking Wellbutrin SR 150 MG 1 tablet in the morning Orally Once a day for 30 day(s) Active Fluticasone Propionate 50 MCG/ACT Nasal for 30 Not-Taking Flonase Unknown Social History Tobacco Use: Social History Observation Description Date Details (start date - stop date) Former Smoker NA - 03/09/2019 Tobacco Use/Smoking Question Answer Notes Are you a: former smoker When did you stop smoking? 03/09/2019 Additional Findings: Tobacco Non-User Ex-cigaret te smoker Alcohol Screen Question Answer Notes Did you have a drink contain ing alcohol in the past year? Yes How often did you have a dri nk containing alcohol in the past year? Monthly or less (1 point) Points 1 Interpretation Negative Tobacco use other than smoking: Question Answer Notes Are you an other tobacco user? 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) Active confirmed Plan Of Treatment Pending Test Test Name Order Date *Uric Acid, Serum 04/10/2021 ESR 04/10/2021 X ray : Foot, right 3V 04/10/2021 Insurance Providers Payer Name Payer Address Payer Phone Subscriber Number Group Number Insured Name Patient Relationship to Insured Coverage Start Date Coverage End Date [facility] [address] [place] [address] [id number] [employer]uro [employer] Spouse - patient is the spouse of the insured Medical (General) History Medical History History ICD Code Anxiety disorder Broken bones Depression Chicken pox Joint implants/screws Diverticulosis Psoriasis/eczema Surgical History Surgery Date(Month/Year) bunionectomy - Left 12/2006 section 07/15/16, 07/27/08 Hospitalization History Reason Date(Month/Year) [facility] xray left foot 12/01
== END 2024-08-20 13:52 | disposition home or self-care (01) ==
PROVIDERS: PCP Internal Medicine
DX: M67.441 Ganglion, right hand (principal)
CPT/HCPCS: 99024

== ENCOUNTER → 2024-08-20 13:23 | Outpatient (BNVA) | payer OTHER, SELFPAY | PROVIDERS: PCP Internal Medicine ==

== ENCOUNTER 2024-12-14 09:04 | Outpatient (REF) | payer OTHER, SELFPAY ==
--- OUTSIDE RECORDS SUMMARY | 2024-12-14 09:32 | XMS_ITS | Data Portability ---
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 Plan of Treatment Reminders Order Date Submit Date Provider Last Modified By Organization Details Last Modified Time Details Appointments None recorded. Lab None recorded. Referral None recorded. Procedures None recorded. Surgeries None recorded. Imaging None recorded. Medication Orders moxifloxaci n 0.5 % eye drops 2023 024 [facility]/Pharmacy #[id number], [address] [place], [address], 4 13:13:51 doxycycline hyclate 100 mg capsule [address]/Pharmacy #[id number], [address] [place], [address], 4 12:49:15 benzonatate 100 mg capsule [address]/Pharmacy #[id number], [address] [place], [address], 4 12:49:06 Patient TargetsNo targets recorded. Patient Instructions Encounter Date Encounter Id Patient Instructions Last Modified By Organization Details Last Modified Time 04/25/2023 [id number] cough: care instructions [email or web address] Not available 04/25/2023 15:07:48 Reason for Referral None Reported. Problems No Known Problems Medical Equipment None Reported. Allergies Allergen ID Allergen Name Allergen Category Reaction Reaction Severity Criticality Documentation Date Start Date Code Code System Note Provider Name and Address Organization Details Recorded Time 377268 Substance with sulfonami de structure and antibacte rial mechanism of action (substanc e) medicatio n Not available Not available Not available 04/25/2023 21025 8003 SNOMED Dorothea thakur, [place] - [facility] 14:54:33 741703 Augmentin medicatio n Not available Not available Not available 04/25/2023 97737 2 RxNorm Dorothea thakur, [place] - [facility] 14:54:38 643606 Product containin g penicilli n (product) medicatio n Not available Not available Not available 04/25/2023 18887 8001 SNOMED Dorothea thakur, PA - [facility] [...] Updated DateTime 4 160.02 cm 34.5 kg/m2 44947.5 1 g 16 /min 97.7 [degF] 97 % 97 % 77 /min 111 mm[Hg] 80 mm[Hg] DAGO WONG PA - [facility] 4 12:51:37 Date Recorded Body height Body mass index (BMI) Body weight Respiratory rate Body temperature Oxygen saturation Oxygen saturation in Arterial blood by Pulse oximetry Heart rate Systolic blood pressure Diastolic blood pressure Provider Name and Address Organization Details Last Updated DateTime 3 160.02 cm 33.7 kg/m2 30620.5 5 g 18 /min 98.6 [degF] 99 % 99 % 78 /min 128 mm[Hg] 85 mm[Hg] Dorothea Malone PA - [facility] 3 14:58:46 Social History Question Answer Notes LastModified by Organizat ion Details LastModified Time Tobacco Smoking Status Never Smoker Dorothea thakur PA - [facility] 04/25/2023 14:57:11 Have You Had A Flu Shot This Season? No Information not available 04/25/2023 Sex: Unknown Functional Status Question Answer Note LastModified by Organization D etails LastModified Time Do you or have you ever used any other forms of tobacco or nicotine? No Information not available 04/25/2023 What is your level of alcohol consumption? None Information not available 04/25/2023 Mental Status None recorded. Family History Relationship [...] SNOMED-CT Code Diagnosis ICD10 Code Diagnosis Note [id number] [address] [place] [address] 12/01/2017 18:16:29 12/01/2017 20:30:41 [id number] [address] [place] [address] 11/07/2015 19:19:56 11/07/2015 20:08:53 [id number] [address] [place] [address] 04/06/2015 12:51:59 04/06/2015 13:26:38 [id number] [place] [address] [place] [address] 04/25/2023 14:47:06 04/25/2023 15:08:23 Acute bronchitis 32939452 J20.9 Please follow up with PCP or Urgent Care in 3-5 days if no improvemen t or if any new symptoms occur that are concerning .Call 911 or go to nearest ER if you develop any shortness of breath, chest pain, severe headache, dizziness, or other concerning symptoms [id number] Gir[place] [address] [place] [address] 2023 12:33:31 2023 13:14:33 Acute conjunctivitis of bilateral eyes [id number] 02036 H10.33 Conjunctiv itis (pink eye), either viral [...] DAYS. IF SYMPTOMS WORSEN, PLEASE SEE AN SETTER OFF OR GO DIRECTLY TO THE ER FOR FURTHER EVALUATION AND MANAGEMENT Health Concerns Section Related Observation LastModified by Organization Detai ls LastModified Time None Recorded Concern Status LastModified by Organization Details LastModified Time None Recorded Advance Directives Directive None Recorded Payers Insurance Date Sequence Insurance Name Policy Number Policy Browne Covered Member ID Browne Member ID Guarantor Name 08/24/[address] [place] [address] [id number] [employer] [id number] [employer]ica [employer] Notes Date Note Type Note [...] no post nasal drip Girish Wallace MD [address] [place] [address] [place], [address], [place] - [facility] 05/02/2023 12:16:33 4 text/html Eye problemsReported bypatient.source of patient informationInformation obtained from patient; Patient arrived at Urgent Care ambulatory Location:bilateral Eye Symptoms:discharge;watery; itching Severity:moderate Onset/Timindays Modifying Factors:nothing gives relief; OTC medication; sleeps in contacts; new glasses; not seeing eye doctor yearly Girish Wallace MD [address] [place], [address], [place] - [facility] 08/24/2023 19:46:42 OBGyn Episode No OBEpisode recorded.
== END 2024-12-14 09:05 | disposition home or self-care (01) ==
LOC: HO.MAMMO 09:04
PROVIDERS: PCP Internal Medicine; Visit Provider Internal Medicine
DX: Z12.31 Encounter for screening mammogram for malignant neoplasm of breast (principal)
CPT/HCPCS: 77063; 77067

== ENCOUNTER → 2024-12-14 09:15 | Outpatient (BNV) | payer OTHER, SELFPAY | PROVIDERS: PCP Internal Medicine; Visit Provider Internal Medicine | DX: Z12.31 Encounter for screening mammogram for malignant neoplasm of breast (principal) | CPT/HCPCS: 77063; 77067 ==

== ENCOUNTER 2025-03-04 12:12 | Outpatient (AMB) | payer OTHER, SELFPAY ==
--- NOTE | 2025-03-04 12:16 | A.OFFPC_ITS ---
Vital Signs 03/04/25 12:17 Height 5 ft 3 in Weight 182 lb BMI 32.2 BP 110/62 Blood Pressure Location Lt brachial Position Sitting Pulse 73 Pulse Source Pulse Oximeter Pulse Oximetry (%) 98 Oxygen Delivery Method Room Air Intake Visit Reasons: annual exam - see comments Allergies celecoxib (From CELEBREX) Allergy (Severe, Verified 03/04/25 12:22) MUSCLE SWELLING clavulanic acid (From AUGMENTIN) Allergy (Severe, Verified 03/04/25 12:22) HIVES penicillin V Allergy (Severe, Verified 03/04/25 12:22) rash Sulfa (Sulfonamide Antibiotics) Allergy (Mild, Verified 03/04/25 12:22) SWELLING codeine (Codeine) Adverse Reaction (Mild, Verified 03/04/25 12:22) NAUSEA & VOMITING Medication List - Last Reconciled 03/04/25 by Adrián Chan MD betamethasone, augmented 0.05 % 1 appl topical DAILY PRN bupropion HCl XL (Wellbutrin XL) 300 mg PO QAM cyanocobalamin (vitamin B-12) 1,000 mcg PO DAILY fluocinolone 0.01% 1 appl topical DAILY fluoxetine (Prozac) 40 mg PO DAILY lisinopril-hydrochlorothiazide 10-12.5 mg 1 tab PO DAILY norethindrone acetate (Aygestin) 5 mg PO DAILY Tobacco use date assessed: 03/04/25 Dental Screening Dental Screen Date: 03/04/25 Did you have a dental visit in the last 12 months?: Yes Did you have a dental problem in the last 6 months where you did not have access to dental care?: No Was dental information given to patient?: Patient has dentist HPI annual exam - see comments HPI Details dizziness 2 months and occ sob. PFSH Medical History (Updated 03/04/25 @ 12:33 by Adrián Chan MD) Annual physical exam HTN, goal below 140/80 Breast cancer screening Anxiety and depression Anemia Shoulder pain Referral of patient Gallbladder polyp Fatty liver Anemia History of renal calculi Toe fracture, left Depression Surgical History H/O colonoscopy H/O dilation and curettage History of hysteroscopy History of bunionectomy History of section Family History Father Colon cancer Maternal Grandmother Breast cancer Paternal Grandfather CAD (coronary artery disease) Father CAD (coronary artery disease) Social History (Updated 03/04/25 @ 12:38 by Adrián Chan MD) Household Members: Significant Other and Children Housing: House Alcohol intake: never Comment: ocne a week glass Patient Tobacco Use Status: Never used Tobacco Tobacco use type: Cigarette e-Cigarette/Vaping Use: Never Used Second Hand Smoke Exposure: No service: No Current occupational status: employed 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 1. Little interest or pleasure in doing things: not at all 2. Feeling down, depressed, or hopeless: not at all 3. Trouble falling or staying asleep, or sleeping too much: several days 4. Feeling tired or having little energy: several days 5. Poor appetite or overeating: not at all 6. Feeling bad about yourself - or that you are a failure or have let yourself or your family down: not at all 7. Trouble concentrating on things, such as reading the newspaper or watching television: not at all 8. Moving or speaking so slowly that other people could have noticed. Or the opposite - being so fidgety or restless that you have been moving around a lot more than usual: not at all 9. Thoughts that you would be better off or of hurting yourself in some way: not at all Total score: 2 Depression Screening Interpretation: Positive Depression Screening Done: Yes Source: Developed by Drs. Feliciano Jaquez, Aysha Matson, Porfirio Crouch and colleagues, with an educational shelbie from [employer]. Thrive Questionnaire Date Thrive assessed: 02/27/25 I am a: Patient What is your living situation today?: I have a steady place to live Within the past 12 months, did the food you bought not last and you didn't have the money to get more?: Never true Within the past 12 months, did you worry whether your food would run out before you got money to buy more?: Never true Do you have trouble paying for medicines?: No Do you have trouble getting transportation to medical appointments?: No Do you have trouble paying your heating and electricity bill?: No Do you have trouble taking care of your child, family member or friend?: No Do you have trouble with day-to-day activities such as bathing, preparing meals, shopping, managing finances, etc.?: No Are you currently unemployed and looking for a job?: No Are you interested in more education?: No Please select the resources that you would like help with: None Currently or been in a relationship where the following occur: No concerns repo rted THRIVE Score: 0 AUDIT C Alcohol Use Questionnaire (AUDIT-C) 1. How often do you have a drink containing alcohol?: Monthly or less 2. How many drinks containing alcohol do you have on a typical day when you are drinking?: 1 or 2 3. How often do you have six or more drinks on one occasion?: Less than monthly Total Score: 2 MOSHE-7 AMB Questionnaire MOSHE-7 Date MOSHE - 7 assessed: 03/04/25 Feeling nervous, anxious, or on edge: 0 = Not at all Not being able to stop or control worryin = Not at all Worrying too much about different things: 1 = Several days Trouble relaxin = Several days Being so restless that it is hard to sit still: 0 = Not at all Becoming easily annoyed or irritable: 0 = Not at all Feeling afraid as if something awful might happen: 0 = Not at all Total MOSHE-7 score (0-4 normal; 5-9 mild; 10-14 moderate; 15-21 severe): 2 Source: Developed by Drs. Feliciano Jaquez, Aysha Matson, Porfirio Crouch and colleagues, with an educational shelbie from [employer]. Review of Systems Const Denies poor appetite and Denies weakness Eyes Denies no additional complaints ENT Reports Normal hearing present, Denies dizziness, Denies nasal congestion, Denies tinnitus and Denies sore throat Card Denies chest pain, Denies syncope, Denies rapid heart rate and Denies dyspnea Resp Denies cough and Denies dyspnea GI Denies change in stool character, Reports constipation, Denies diarrhea, Denies nausea and Denies vomiting Denies urinary frequency, Denies difficulty voiding and Denies dysuria Neuro Reports Normal hearing present, Denies confusion, Denies dizziness, Denies syncope and Denies weakness Psych Denies confusion Physical exam (Primary Care) Vital Signs: Last Vital Signs Pulse 73 03/04/25 12:17 BP 110/62 03/04/25 12:17 Pulse Ox 98 03/04/25 12:17 Oxygen Delivery Method Room Air 03/04/25 12:17 BMI result Body Mass Index 32.2 Tobacco/Smoking Status: Tobacco use Status Tobacco use date assessed 03/04/25 03/04/25 12:27 Patient Tobacco Use Status Never used Tobacco 03/04/25 12:38 Tobacco use type Cigarette 03/04/25 12:38 e-Cigarette/Vaping Use Never Used 03/04/25 12:38 PHQ-9: PHQ-9 Score PHQ-9: Total score 2 03/04/25 12:33 Depression Screening Interpretation: Positive Thrive Assessment: Date of Thrive Assessment Date Thrive assessed 02/27/25 03/04/25 12:20 Currently or been in a relationship where the following occur: No concerns reported Const General: No confusion Orientation/consciousness: No confusion HENMT Head: Yes normocephalic Ears: external ears normal and TM's normal bilaterally Face and sinus: Yes normal facial exam Mouth: moist mucous membranes Throat: Yes tonsils normal Eyes Conjunctivae: conjunctivae normal Pupils: Equal, round and reactive pupils present and Pupil accommodation reflex normal Direct Ophthalmoscopy: normal light reflex Neck Neck: No lymphadenopathy Thyroid: Thyroid normal Chest Chest palpation & inspection: normal inspection of the chest Resp Effort & Inspection: normal respiratory effort and no audible wheezes Auscultation: clear to auscultation bilaterally, no crackles, no wheezes and lung sounds not diminished Cardio Rate: regular rate Rhythm: regular rhythm Peripheral pulses: radial pulses present and dorsalis pedis present GI Palpation (GI): no masses Auscultation: normal bowel sounds and normoactive bowel sounds Rectal Exam - Female: deferred Skin General skin exam: no rashes or lesions noted Rashes: no rashes Neuro General: No confusion Cranial nerves: Yes Equal, round and reactive pupils present and Yes Normal hearing present Cognition (Neuro): normal cognition Gait exam (Neuro): Normal gait present Motor exam (neuro): 5/5 motor strength present throughout Deep tendon reflexes (DTR's): Right brachioradialis reflex intensity grade: 2+, Left brachioradialis reflex intensity grade: 2+, Right patellar reflex intensity grade: 2+ and Left patellar reflex intensity grade: 2+ Extrem General: No edema Coding Level of Care Code Est Pt Prev Care 40-64y(21354) Diagnoses Annual physical exam Z00.00 Obesity (BMI 30-39.9) E66.9 Impaired glucose tolerance R73.02 Primary hypertension I10 Hypertension type: primary hypertension Generalized anxiety disorder F41.1 Family history of colon cancer Z80.0 Assessment & Plan Assessment & Plan (1) Annual physical exam: Code(s): Z00.00 - Encounter for general adult medical examination without abnormal findings Category: Medical Plan: Patient is advised to eat healthy, keep well hydrated, keep active and have adequate sleep. (2) Obesity (BMI 30-39.9): Code(s): E66.9 - Obesity, unspecified Category: Medical Plan: Diet and exercise (3) Impaired glucose tolerance: Code(s): R73.02 - Impaired glucose tolerance (oral) Category: Medical Plan: Decrease the amount of carbohydrate intake, pasta, bread, rice and potatoes are all sugar and that is aside from all the sweet stuff, remember that fruits are good but they are Sweet also. (4) Hypertension: Code(s): I10 - Essential (primary) hypertension Category: Medical Qualifiers: Hypertension type: primary hypertension Qualified Code(s): I10 - Essential (primary) hypertension Plan: Continue with blood pressure medication. Decrease salt intake and exercise presently on lisinopril hydrochlorothiazide 10/12.5 mg once a day (5) Generalized anxiety disorder: Comment: Dr. Gisel Conde every 6 months Code(s): F41.1 - Generalized anxiety disorder Category: Medical Plan: Continue with counseling and therapy. On fluoxetine and Wellbutrin (6) Family history of colon cancer: Comment: colon test 2018June 2024 Code(s): Z80.0 - Family history of malignant neoplasm of digestive organs Category: Medical Plan: Colonoscopy done and up-to-date Plan History of Present Illness The patient is a 44-year-old female presenting for an annual physical examination. She has a history of obesity, anemia, hypertension, and impaired glucose tolerance. Her blood pressure has been well-controlled with lisinopril and hydrochlorothiazide, but recent measurements indicated hypotension, leading to the discontinuation of hydrochlorothiazide. The patient also has generalized anxiety disorder, managed with fluoxetine and bupropion, and she continues with counseling and therapy. She has a family history of colon cancer and underwent a colonoscopy in June 2024, which was up to date. Her mammogram is also current as of December 2024. In terms of laboratory findings, she has mild thrombocytosis and elevated blood sugar with a normal hemoglobin A1c. Her vitamin B12 level is very low, and she is currently on supplementation. Vitamin D is also low, while folic acid and thyroid levels are within normal limits. Health Maintenance - Colonoscopy performed in June 2024, up to date - Mammogram current as of December 2024 - Blood pressure monitoring and management with lisinopril - Vitamin B12 supplementation ongoing - Encouraged adequate hydration to manage dizziness Social History - Denies alcohol consumption and smoking - Engages in walking as a form of exercise Review of Systems - Cardiovascular: Reports dizziness when changing positions. Denies chest pain, palpitations, or syncope. - Respiratory: Denies dyspnea, cough, or wheezing. - Gastrointestinal: Denies nausea, vomiting, or constipation. - Neurological: Reports dizziness when standing quickly. Denies headaches or seizures. - Musculoskeletal: Denies joint pain or swelling. Physical Exam General: Cooperative, healthy appearing, comfortable, no acute distress and well developed Orientation: Patient oriented x3 Limitations: No limitations Head: Normal to inspection Ears: Hearing grossly normal bilaterally Nose: Normal external nose present Face and sinus: Normal facial exam Eyes: Appearance normal, both eyes and all related structures Neck: Normal visual inspection and Yes full ROM Respiratory: Normal respiratory effort and able to speak in complete sentences. Clear to auscultation bilaterally Cardiovascular: Regular rate and rhythm. Normal S1 and S2 GI: Normal to inspection. Soft to palpation and nontender Skin: No rashes or lesions noted Neuro: Patient oriented x3 Extremities: Normal to inspection Results - Labs: Mild thrombocytosis, elevated blood sugar with normal hemoglobin A1c, low vitamin B12, low vitamin D, normal folic acid and thyroid levels Plan Patient was informed and verbally consented to the use of an ambient scribe for clinic note documentation during this visit. 1. Hypertension The patient's hypertension is managed with lisinopril, and hydrochlorothiazide was discontinued due to hypotension. She is advised to monitor her blood pressure regularly and report any significant changes. 2. Impaired Glucose Tolerance The patient has impaired glucose tolerance with elevated blood sugar but normal hemoglobin A1c. She is encouraged to maintain a healthy diet and exercise regularly to manage her blood sugar levels. 3. Vitamin B12 Deficiency The patient is on vitamin B12 supplementation due to low levels detected in June 2024. Follow-up blood tests are planned to monitor her B12 levels. 4. Generalized Anxiety Disorder The patient's generalized anxiety disorder is managed with fluoxetine and bupropion, along with counseling and therapy. She is advised to continue her current treatment regimen. 5. Preventative Care The patient is up to date with her colonoscopy and mammogram screenings. She is encouraged to maintain regular health check-ups and screenings. Discussion Notes During the visit, we discussed the management of hypertension, including the discontinuation of hydrochlorothiazide due to hypotension and the continuation of lisinopril. We also reviewed the importance of regular blood pressure monitoring and maintaining a healthy lifestyle to manage impaired glucose tolerance. The patient was advised to continue vitamin B12 supplementation and follow up with blood tests to monitor levels. We discussed the management of generalized anxiety disorder with current medications and therapy. Preventative care measures, including up-to-date colonoscopy and mammogram screenings, were reviewed. Patient Instructions - Monitor blood pressure regularly and report any significant changes. - Maintain a healthy diet and exercise regularly to manage blood sugar levels. - Continue vitamin B12 supplementation and follow up with blood tests as advised. - Continue current medications and therapy for anxiety management. - Stay up to date with health screenings and vaccinations. Orders: Orders Free T4 (Free Thyroxine) Today R73.02 - Impaired glucose tolerance (oral) Thyroid Stimulating Hormone Today R73.02 - Impaired glucose tolerance (oral) UA CC w/rflx Micro + Cult Today R30.0 - Dysuria, R73.02 - Impaired glucose tolerance (oral) Hemoglobin A1c Today R73.02 - Impaired glucose tolerance (oral) Vitamin D 25-OH Total Today R73.02 - Impaired glucose tolerance (oral) Medications: New lisinopril 10 mg PO DAILY 90 tabs 1RF I10 - Essential (primary) hypertension Discontinued lisinopril-hydrochlorothiazide 10-12.5 mg Discontinued Reason: Doctor's Order 1 tab PO DAILY 90 tabs 0RF I10 - Essential (primary) hypertension
[2025-03-04 12:17] VITALS: BP 110/62; PULSE 73; O2SAT 98; BMI 32.2
== END 2025-03-04 12:56 | disposition home or self-care (01) ==
LOC: HO.HMCH 12:13
PROVIDERS: PCP Internal Medicine; Visit Provider Internal Medicine
DX: Z00.00 Encounter for general adult medical examination without abnormal findings (principal); E66.9 Obesity, unspecified; Z68.32 Body mass index [BMI] 32.0-32.9, adult; R73.02 Impaired glucose tolerance (oral); I10 Essential (primary) hypertension; F41.1 Generalized anxiety disorder; Z80.0 Family history of malignant neoplasm of digestive organs